=== PATIENT | male | born 1940 | race Caucasian/White ===

== ENCOUNTER 2018-10-28 05:38 | Emergency (ER) | payer MEDICARE, OTHER, SELFPAY ==
[2018-10-28 05:41] VITALS: BP 149/75; PULSE 77; RESP 20; TEMP 36.3; O2SAT 95
[2018-10-28 06:14] LABS: Abs Immature Grans 0.02 k/cumm (0.0-0.09); Absolute Basophil Count 0.01 k/cumm (0.0-0.2); Absolute Eosinophil Count 0.14 k/cumm (0.0-0.7); Absolute Lymphocyte Count 0.95 k/cumm (1.2-3.4); Absolute Monocyte Count 0.62 k/cumm (0.11-0.7); Absolute Neutrophil Count 6.66 k/cumm (1.2-6.7); Basophils % 0.1; Eosinophils % 1.7; HCT 41.2 % (40.0-50.0); HGB 13.9 g/dL (13.5-17.5); Immature Grans % 0.2; Lymphocytes % 11.3; Mean Corp. HGB Concentration 33.7 g/dL (32.0-36.0); Mean Corpuscular Hemoglobin 33.3 pg (27.0-33.0); Mean Corpuscular Volume 98.6 fL (80-95); Mean Platelet Volume 9.2 fL (8.0-11.0); Monocytes % 7.4; Neutrophils % 79.3; Platelet Count 166 x1000/uL (130-400); RBC 4.18 m/cumm (4.50-6.00); RBC Distribution Width 12.9 % (11.8-14.1)
[2018-10-28 06:29] LABS: ALT 24 U/L (12-78); AST 18 U/L (15-37); Albumin 3.7 g/dL (3.4-5.0); Alkaline Phosphatase 63 U/L (46-116); BUN 20 mg/dL (7-18); Bilirubin, Total 0.4 mg/dL (0.2-1.0); CREATININE 1.07 mg/dL (0.70-1.30); Calcium 8.8 mg/dL (8.5-10.1); Chloride 103 mmol/L (98-107); Glucose 123 mg/dL (70-100); Potassium 4.1 mmol/L (3.5-5.1); Sodium 140 mmol/L (136-145); Total Protein 7.6 g/dL (6.4-8.2)
[2018-10-28 06:30] LABS: Troponin I < 0.02 ng/mL (0.00-0.06)
--- NOTE | 2018-10-28 06:35 | DI.RAD_ITS ---
SYMPTOM/DIAGNOSIS: S/P FALL, PAIN, ? FX LEFT RIBS AND PA AND LATERAL CHEST: No priors for comparison. Heart size and pulmonary vasculature are within normal limits. There are sternal wires in place. The lungs show no focal consolidating infiltrates, effusions or pneumothoraces. There is a minimally displaced fracture involving the lateral aspect of the left fifth rib. There is a nondisplaced fracture involving the lateral aspect of the left sixth rib. There is an anterior wedging deformity involving the superior endplate of the T 3 vertebral body. This is age indeterminate. IMPRESSION: 1. No acute pulmonary process. 2. Fractures involving the lateral aspects of the left fifth and sixth ribs. 3. Age indeterminate compression deformity of the superior endplate of T 3. Follow up as clinically appropriate.
--- NOTE | 2018-10-28 07:05 | DI.VRAD_ITS ---
EXAM: XR Left Ribs, 2 Views EXAM DATE/TIME: 10/28/2018 5:59 AM CLINICAL HISTORY: 78 years old, male; Injury or trauma; Fall; Initial encounter; Blunt trauma (contusions or hematomas); Rib area, left side; Injury date: 10/28/18; Injury details: Fall on chest and anterior pain; Prior surgery; Surgery date: 6+ months; Surgery type: Cabg TECHNIQUE: XR Left ribs 2 views. COMPARISON: No relevant prior studies available. FINDINGS: Bones/joints: Anteriorly wedge compression fracture in the upper thoracic spine is age-indeterminate. CT imaging recommended if vertebral body fracture is suspected. Minimally displaced left lateral fifth rib fracture.equivocal sixth nondisplaced left rib fracture. Soft tissues: Normal. IMPRESSION: 1. Anteriorly wedge compression fracture in the upper thoracic spine is age-indeterminate. CT imaging recommended if vertebral body fracture is suspected. 2. Minimally displaced left lateral fifth rib fracture.equivocal sixth nondisplaced left rib fracture. EXAM: XR Chest, 2 Views EXAM DATE/TIME: 10/28/2018 5:59 AM CLINICAL HISTORY: 78 years old, male; Injury or trauma; Fall; Initial encounter; Blunt trauma (contusions or hematomas); Rib area, left side; Injury date: 10/28/18; Injury details: Fall on chest and anterior pain; Prior surgery; Surgery date: 6+ months; Surgery type: Cabg TECHNIQUE: XR of the chest, 2 views. COMPARISON: No relevant prior studies available. FINDINGS: Lungs: Unremarkable. No consolidation. Pleural space: Minimal apical pleural thickening noted on the right Heart/Mediastinum: Unremarkable. No cardiomegaly. Bones/joints: Left-sided rib fractures are not ideally visualized IMPRESSION: No acute findings Dictated and Authenticated by: Huber Singh MD. Ordering:MELISSA Bell MD
--- NOTE | 2018-10-28 07:07 | ED.GENADUL_ITS ---
Discharge Plan Disposition Patient Disposition: HOME Condition: Stable Discharge Details Chief Complaint: Chest/Rib Clinical Impression: Fracture, ribs, Fall Primary Care Provider: Tomy Jasso ED Provider: Arabella Longoria Home Meds and New Rx's Prescriptions: New hydrocodone-acetaminophen 5-325 mg tablet 1 tab PO Q6H PRN (Reason: pain) Qty: 10 RF: 0 Continued multivitamin [Daily Vitamin] 1 EACH tablet 1 ea PO DAILY RF: 0 ascorbic acid (vitamin C) 500 MG tablet 500 mg PO DAILY RF: 0 cholecalciferol (vitamin D3) 1,000 UNIT tablet 1,000 unit PO DAILY Qty: 100 RF: 6 glucosam-chond sm-cedvpq-[id number] ac 1 EACH capsule 1 ea PO DAILY RF: 0 acetaminophen [Tylenol Extra Strength] 500 MG tablet 500 mg PO BID RF: 0 aspirin [Aspir-81] 81 MG tablet,delayed release (DR/EC) 81 mg PO -- Qty: 100 RF: 0 pravastatin 40 MG tablet 40 mg PO DAILY Qty: 90 RF: 3 gabapentin 300 MG capsule 300 mg PO as directed Qty: 90 RF: 5 clonazepam 1 MG tablet 1 mg PO HS Qty: 90 RF: 1 Discharge Instructions Instructions: Rib Fracture (ED) Additional Instructions: Take the hydrocodone as needed and directed for pain. Follow-up with the primary care doctor in 1 week for reevaluation. Return immediately to the emergency department any worsening or new concerning symptoms. Discharge Data Discharge Date/Time-TO BE ENTERED AT DEPARTURE: 10/28/18 08:30 Discharge Physician: Arabella Longoria Medical Decision Making 78yo M w/ a h/o HLD, CAD, CABG who presents with left anterior and lateral rib pain after slip and fall on ice 4 days ago. Pt had c/o L chest heaviness to nurse so an EKG and labs done on arrival due to pt's age and h/o CABG but pt states his main complaint is a dull constant ache in his ribs, that is worse with any movement or cough. Vitals within normal limits. Afebrile. Patient has a history of chronic tobacco smoking and had wheezing so a neb treatment was given. He has normal respiratory rate, oxygen saturation and no fever. He appears nontoxic and in no acute distress. Patient was offered pain medication, but he drove himself here and declines at this time. EKG notes a rate of 78, sinus, occasional PVCs, no acute ST elevation or depression. Labs reviewed and unremarkable. Troponin negative. X-rays reviewed and note left displaced fifth and nondisplaced sixth rib fractures as well as age- indeterminate wedge compression fracture of upper T-spine. Patient has no midline T-spine tenderness and do not suspect acute fracture. He has no focal deficits. Medical Records Medical records reviewed: Yes I reviewed the patient's medical records. Imaging Data Radiologic Study: Radiologist's impression: XR Left Ribs, 2 Views EXAM DATE/TIME: 10/28/2018 5:59 AM FINDINGS: Bones/joints: Anteriorly wedge compression fracture in the upper thoracic spine is age-indeterminate. CT imaging recommended if vertebral body fracture is suspected. Minimally displaced left lateral fifth rib fracture.equivocal sixth nondisplaced left rib fracture. Soft tissues: Normal. IMPRESSION: 1. Anteriorly wedge compression fracture in the upper thoracic spine is age-indeterminate. CT imaging recommended if vertebral body fracture is suspected. 2. Minimally displaced left lateral fifth rib fracture.equivocal sixth nondisplaced left rib fracture. XR Chest, 2 Views FINDINGS: Lungs: Unremarkable. No consolidation. Pleural space: Minimal apical pleural thickening noted on the right Heart/Mediastinum: Unremarkable. No cardiomegaly. Bones/joints: Left-sided rib fractures are not ideally visualized IMPRESSION: No acute findings Lab Data Lab results reviewed: Yes I reviewed the patient's lab results. HPI General Mode of arrival: ambulatory . Date/Time Provider Initiated Documentation: 10/28/18 05:57 . Limitations to Documentation: no limitations . Information obtained by: patient . HPI Narrative: Patient is a 78-year-old male with a history of coronary artery disease, hyperlipidemia, CABG who presents with left anterior chest and rib pain after fall and slip on ice 4 days ago. Patient states his arm was tucked into his chest and he fell directly onto the hard ground. Patient states he has had pain with deep breath and movement and coughing since then. Patient is a chronic smoker so states he freely has a smoker's cough but states this is no worse than usual. He denies any fever. Patient describes the pain as a dull ache and does not endorse any tearing or ripping pain. Patient took 2 Tylenol this morning for pain relief. Patient states he drove himself to the ED per Related Data Home Medications Medication Instructions Recorded Confirmed ascorbic acid (vitamin C) 500 mg PO DAILY 12/09/12 10/28/18 multivitamin [Daily Vitamin] 1 ea PO DAILY 12/09/12 10/28/18 cholecalciferol (vitamin D3) 1,000 unit PO DAILY #100 tab-cap 07/13/14 10/28/18 glucosam-chond ip-ztjsef-ei ac 1 ea PO DAILY 08/05/14 10/28/18 acetaminophen [Tylenol Extra 500 mg PO BID tab 02/04/17 10/28/18 Strength] aspirin [Aspir-81] 81 mg PO M-W-F #100 tab-cap 06/24/17 10/28/18 pravastatin 40 mg PO DAILY #90 tab-cap 12/16/17 10/28/18 gabapentin 300 mg PO as directed #90 tab-cap 05/06/18 10/28/18 clonazepam 1 mg PO HS #90 tab 05/27/18 10/28/18 hydrocodone-acetaminophen 1 tab PO Q6H PRN #10 tab 10/28/18 Previous Rx's Medication Instructions Recorded aspirin [Aspir-81] 81 mg PO M-W-F #100 tab-cap 06/24/17 pravastatin 40 mg PO DAILY #90 tab-cap 12/16/17 gabapentin 300 mg PO as directed #90 tab-cap 05/06/18 clonazepam 1 mg PO HS #90 tab 05/27/18 hydrocodone-acetaminophen 1 tab PO Q6H PRN #10 tab 10/28/18 Allergies Allergy/AdvReac Type Severity Reaction Status Date / Time shellfish derived Allergy Intermediate severe Unverified 10/28/18 05:49 vomiting oxycodone HCl [From Percocet] AdvReac wild Unverified 10/28/18 05:49 dreams trazodone AdvReac unknown Unverified 10/28/18 05:49 General Stated Complaint: Chest/Rib JACKELINE: 4 Review of Systems Review of Systems All systems reviewed & are unremarkable except as noted in HPI and below Constitutional Reports as per HPI, Denies chills and Denies fever(s) Eyes Denies blurry vision ENT Denies dizziness, Denies sore throat and Denies throat swelling Cardiovascular Reports chest pain and Denies dyspnea Respiratory Denies dyspnea Gastrointestinal Denies abdominal pain, Denies diarrhea and Denies vomiting Genitourinary Denies hematuria and Denies dysuria Musculoskeletal Denies back pain and Denies numbness Integumentary/Breasts Denies lesions and Denies rash Neurologic Denies dizziness and Denies numbness Allergic/Immunologic Denies throat swelling [facility] Medical History Hyperlipemia (Acute) Alcohol abuse (Chronic) Coronary artery disease (Chronic) Surgical History S/P rotator cuff repair (Acute) History of appendectomy (Chronic) History of tonsillectomy (Chronic) Hx of CABG (Chronic) Hx of cholecystectomy (Chronic) Colonoscopy - IV Sedation (10/30/16) SKIN BIOPSY (08/07/15) Family History Mother Diabetes Father No problems noted. Sister No problems noted. Sister No problems noted. Brother No problems noted. Social History Smoking/Tobacco Use Status: Current every day alcohol intake: former substance use type: does not use Exam Const General: cooperative, healthy appearing and no acute distress HENMT Head: normal to inspection Face and sinus: normal facial exam Eyes General: appearance normal, both eyes and all related structures EOM: EOM intact bilaterally Neck Neck: normal visual inspection and No submandibular swelling Lymphatic: no lymphadenopathy noted Chest Chest: normal inspection of the chest and tenderness rib left mid-clavicular line Chest/axillae images: 1. L rib tenderness 2. L rib tenderness Resp Effort & Inspection: normal respiratory effort and able to speak in complete sentences Auscultation: clear to auscultation bilaterally Cardio Rate: regular rate Rhythm: regular rhythm GI Inspection: normal to inspection and other (no evidence of trauma) Palpation: soft, not firm, not rigid and nontender Auscultation: normal bowel sounds Skin General skin exam: no rashes or lesions noted Neuro General: alert, awake and oriented x3 Cognition: normal cognition Speech: speech normal Motor: muscle tone normal throughout Sensory Exam: no sensory deficits noted Extrem General: normal to inspection, full ROM and no edema Psych Appearance: grossly normal Mental Status: mental status grossly normal Speech and Movement: speech and movement normal Affect: normal affect Course Vital Signs Temperature 97.3 F L 10/28/18 05:41 Pulse 77 10/28/18 05:41 Respiratory Rate 20 10/28/18 05:41 Blood Pressure 149/75 H 10/28/18 05:41 Pulse Oximetry 95 10/28/18 05:41 Temperature 97.3 F L 10/28/18 05:41 Temperature Source Skin 10/28/18 05:41 Pulse 77 10/28/18 05:41 Respiratory Rate 20 10/28/18 05:41 Respiratory Effort 10/28/18 05:51 Respiratory Depth Shallow 10/28/18 05:51 Respiratory Pattern Normal 10/28/18 05:51 Blood Pressure 149/75 H 10/28/18 05:41 Blood Pressure Position Sitting 10/28/18 05:41 Pulse Oximetry 95 10/28/18 05:41 Oxygen Delivery Method Room Air 10/28/18 05:41 Oxygen Flow Rate 0 10/28/18 05:41 Pain Level 8 10/28/18 05:51 Lab/Test Results Lab/Test Results: Laboratory Tests Range/Units 10/28/18 10/28/18 06:08 06:08 WBC (4.4-10.8) k/cumm 8.40 RBC (4.50-6.00) m/cumm 4.18 L Hgb (13.5-17.5) g/dL 13.9 Hct (40.0-50.0) % 41.2 MCV (80-95) fL 98.6 H MCH (27.0-33.0) pg 33.3 H MCHC (32.0-36.0) g/dL 33.7 RDW (11.8-14.1) % 12.9 Plt Count (130-400) x1000/uL 166 MPV (8.0-11.0) fL 9.2 Immature Gran % 0.2 Neutrophils % 79.3 Lymphocytes % 11.3 Monocytes % 7.4 Eosinophils % 1.7 Basophils % 0.1 Absolute Neutrophils (1.2-6.7) k/cumm 6.66 Absolute Lymphocytes (1.2-3.4) k/cumm 0.95 L Absolute Monocytes (0.11-0.7) k/cumm 0.62 Absolute Eosinophils (0.0-0.7) k/cumm 0.14 Absolute Basophils (0.0-0.2) k/cumm 0.01 Sodium (136-145) mmol/L 140 Potassium (3.5-5.1) mmol/L 4.1 Chloride (98-107) mmol/L 103 Carbon Dioxide (21.0-32.0) mmol/L 28.0 Anion Gap (3-11) mmol/L 9.0 BUN (7-18) mg/dL 20 H Creatinine (0.70-1.30) mg/dL 1.07 Estimated GFR/1.73 m2 (mL/min/1.73m2) >= 60.00 Glucose (70-100) mg/dL 123 H Calcium (8.5-10.1) mg/dL 8.8 Magnesium (1.8-2.4) mg/dL 2.0 Total Bilirubin (0.2-1.0) mg/dL 0.4 AST (15-37) U/L 18 ALT (12-78) U/L 24 Alkaline Phosphatase (46-116) U/L 63 Troponin I (0.00-0.06) ng/mL < 0.02 Total Protein (6.4-8.2) g/dL 7.6 Albumin (3.4-5.0) g/dL 3.7
[2018-10-28] MEDS: HYDROcodone 5/Acetaminophen 325 TAB PO (08:30)
--- NOTE | 2018-10-28 13:25 | NUR.NOTE ---
incentive spirometer given and reviewed.Nursing Note:
[2018-10-28 13:26] VITALS: BP 106/75; PULSE 65; RESP 16; TEMP 36.3; O2SAT 98
== END 2018-10-28 08:30 | disposition home or self-care (01) ==
PROVIDERS: Emergency Provider Physician Assistant; PCP Family Medicine
DX: S22.42XA Multiple fractures of ribs, left side, initial encounter for closed fracture (principal); R06.2 Wheezing; I25.10 Atherosclerotic heart disease of native coronary artery without angina pectoris; W00.0XXA Fall on same level due to ice and snow, initial encounter; Z95.1 Presence of aortocoronary bypass graft; F17.210 Nicotine dependence, cigarettes, uncomplicated
CPT/HCPCS: 36415; 80053; 93005; 94640; 99285; 71046; 71100; 83735; 84484; 85025; 93010

== ENCOUNTER 2020-02-02 14:10 | Outpatient (REF) | payer MEDICARE, OTHER, SELFPAY ==
[2020-02-02 16:04] LABS: Bilirubin Moderate (Negative); Blood Large (Negative); Clarity Cloudy (Clear); Glucose Negative (Negative); Ketones Trace mg/dL (Negative); Leukocyte Esterase Negative (Negative); Nitrite Negative (Negative); Specific Gravity 1.025 (1.005-1.025)
[2020-02-02 17:14] LABS: C & S Indicated? Yes; RBC >50 HPF (0-2)
== END 2020-02-02 14:30 ==
LOC: LBN 14:10
PROVIDERS: PCP Family Medicine; Visit Provider Family Medicine
DX: R31.9 Hematuria, unspecified (principal)
CPT/HCPCS: 81003; 81015; 87086

== ENCOUNTER → 2020-03-10 10:31 | Outpatient (BNVA) | payer MEDICARE, OTHER, SELFPAY | PROVIDERS: PCP Family Medicine; Referring Provider Family Medicine; Visit Provider Nurse Practitioner Gerontology | DX: N40.2 Nodular prostate without lower urinary tract symptoms (principal); R31.9 Hematuria, unspecified; I10 Essential (primary) hypertension | CPT/HCPCS: 81003; 99204; 99215 ==

== ENCOUNTER 2020-03-10 12:34 | Outpatient (REF) | payer MEDICARE, OTHER, SELFPAY ==
[2020-03-11 09:33] LABS: PSA, Screening 15.5 ng/mL (0.0-6.5)
== END 2020-03-10 12:54 ==
LOC: LBN 12:34
PROVIDERS: PCP Family Medicine; Visit Provider Nurse Practitioner Gerontology
DX: N40.2 Nodular prostate without lower urinary tract symptoms (principal); R31.9 Hematuria, unspecified; Z12.5 Encounter for screening for malignant neoplasm of prostate
CPT/HCPCS: 84153

== ENCOUNTER 2020-04-26 01:15 | Outpatient (CLI) | payer MEDICARE, OTHER, SELFPAY ==
--- NOTE | 2020-04-26 07:15 | DI.US_ITS ---
EXAM: elevated psa 15.5ng/ml; prostate nodule,n40.2 COMPARISON: No exams were available for comparison TECHNIQUE: Ultrasound performed using standard protocol. FINDINGS: Sonography was provided for Dr. Jean Baptiste during the performance of a transrectal ultrasound-guided pros adams biopsy. Please refer to the procedure report for complete details. DATA REPOSITORY:
--- NOTE | 2020-04-26 10:16 | PROST_PTH ---
PATIENT: Salas Cornell LOC: [facility] U#:[id number] AGE/SX: 79/M ROOM: RE04/26/[address]: Louis Jean Baptiste MD : 1940 BED: DIS: 04/26/2020 SPEC #: [id number] RECD: 04/26/20 12:26 STATUS: TORSTEN RE #: [id number] LAZ: 04/26/20 10:[address]: Louis Jean Baptiste DEPT: Surgical Specimen RECD BY: Chong Brown ENTERED: 04/26/20 12:35 SP TYPE: PROST OTHR DR: Tomy Jasso DO Tissues: 1 - PROSTATE NEEDLE BIOPSY 2 - PROSTATE NEEDLE BIOPSY 3 - PROSTATE NEEDLE BIOPSY 4 - PROSTATE NEEDLE BIOPSY 5 - PROSTATE NEEDLE BIOPSY 6 - PROSTATE NEEDLE BIOPSY 7 - PROSTATE NEEDLE BIOPSY 8 - PROSTATE NEEDLE BIOPSY 9 - PROSTATE NEEDLE BIOPSY 10 - PROSTATE NEEDLE BIOPSY 11 - PROSTATE NEEDLE BIOPSY 12 - PROSTATE NEEDLE BIOPSY Procedures: GROSS AND MICRO LEVEL 4 Comments: [id number]
--- NOTE | 2020-04-26 10:29 | W.PM.OP ---
Date of service: 04/26/20 Time of Service: 10:29 Operative Note Operative Note DATE OF PROCEDURE: 04/26/20 PRE-OP DIAGNOSIS: 1. Elevated PSA 2. Abnormal digital rectal exam POST-OP DIAGNOSIS: same PROCEDURE: Transrectal ultrasound-guided needle biopsy of the prostate SURGEON: Louis Jean Baptiste ANESTHESIA: local ESTIMATED BLOOD LOSS: 5 PATHOLOGY: other (12 laterally directed biopsies of the prostate sent for permanent section) COMPLICATIONS: None Patient was transported to: no change Patient's condition: stable Indications: This is a 79-year-old gentleman who was identified as having a palpable nodule on the left side of the prostate. He also has a PSA level of 15.5 ng/mL. He presents now for ultrasound-guided biopsy of the prostate Findings: Prostate volume between 18 and 19 cc Procedure Description: The patient was brought to the radiology suite on 04/26/2020. He had been given a preprocedural oral antibiotic. He was placed in the left lateral position. Transrectal imaging of the prostate was then performed using a variable hertz transducer. The prostate was imaged in transverse and longitudinal planes. The prostatic volume was measured at 18.9 cc. The transition zone was only slightly enlarged. There was a hypoechoic area on the left peripheral zone. The architecture between the peripheral and transition zones was well preserved. We then did a periprosthetic nerve block using 1% lidocaine. A total of 12 laterally directed biopsies were taken. At least 2 of the biopsies were taken through the hypoechoic area. Each biopsy was labeled and sent to pathology for permanent section. The patient tolerated this procedure with no complications
== END 2020-04-26 01:35 ==
PROVIDERS: PCP Family Medicine; Visit Provider Urology
DX: N40.2 Nodular prostate without lower urinary tract symptoms (principal); C61 Malignant neoplasm of prostate; R97.20 Elevated prostate specific antigen [PSA]
CPT/HCPCS: 55700; 76942; 76872; 88305

== ENCOUNTER → 2020-05-10 14:27 | Outpatient (BNVA) | payer MEDICARE, SELFPAY | PROVIDERS: PCP Family Medicine; Referring Provider Family Medicine; Visit Provider Urology | DX: C61 Malignant neoplasm of prostate (principal) | CPT/HCPCS: 99214 ==

== ENCOUNTER → 2020-05-13 10:32 | Outpatient (BNVA) | payer MEDICARE, SELFPAY | PROVIDERS: PCP Family Medicine; Referring Provider Family Medicine; Visit Provider Urology | DX: C61 Malignant neoplasm of prostate (principal); I10 Essential (primary) hypertension | CPT/HCPCS: 99212; 99213 ==

== ENCOUNTER 2020-05-20 01:45 | Outpatient (CLI) | payer MEDICARE, SELFPAY ==
--- NOTE | 2020-05-20 06:15 | DI.NM_ITS ---
EXAM: NM BONE SCAN WHOLE BODY GRP CLINICAL HISTORY: r/o mets,PROSTATE CA. TECHNIQUE: Injected Dose: 25 mCi Tc-99m MDP Delayed Images: 2-3 hours. COMPARISON: No exams were available for comparison FINDINGS: Symmetric axial uptake. Bilateral renal excretion is identified. 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 Focus of increased radiotracer upt pop at the right aspect of the mid cervical spine. This is likely degenerative. X-rays of the cervi naveed spine may be obtained for further evaluation. No other suspicious uptake is seen in the axial or appendicular skeleton to suggest osseous metastatic disease. IMPRESSION: 1. No definite evidence of metastatic disease. Please see the above discussion for complete details. DATA REPOSITORY:
[2020-05-20] MEDS: Breeza Beverage 473 ML BTL PO ×2 (09:26→09:27)
[2020-05-20] MEDS: Omnipaque 350 MG/ML 50 ML BTL PO (09:27)
--- NOTE | 2020-05-20 10:47 | DI.CT_ITS ---
EXAM: CT ABDOMEN PELVIS W CLINICAL HISTORY: r/o mets,prostate ca,c61 TECHNIQUE: Imaging Protocol: Axial computed tomography images with coronal and sagittal reformatted images were created and reviewed CONTRAST MATERIAL: Intravenous: Omnipaque 350 Contrast volume:100 mL Oral: Yes COMPARISON: CT RENAL COLIC WO CONTRAST from 12/17/2017 FINDINGS: ABDOMEN: Lung Bases: Emphysematous changes and pulmonary fibrosis. Liver: Normal density. No measurable mass. There are areas of decreased attenuation along the gallbla dder fossa which may represent focal fatty infiltration. Portal, Superior Mesenteric, and Splenic Veins: Unremarkable. Gallbladder and Biliary Tract: Status post cholecystectomy. No biliary ductal dilatation. Pancreas: Normal density, no abnormal calcifications or inflammatory process. Spleen: Normal. Small accessory spleen. Adrenals: Stable left adrenal nodule. Kidneys: Normal size, contour and axis. Nonobstructing 2 mm right renal calculus. There is a heterog eneously enhancing 3 x 3.4 x 2.7 cm mass in the inferior pole of the left kidney. Abdominal Aorta: Abdominal portion non-dilated. Atherosclerosis. Bowel: No obstruction or bowel wall thickening. No evidence of acute appendicitis. Colonic diverticu losis but no evidence of acute diverticulitis. Peritoneal Cavity: No ascites, collection or mesenteric inflammatory response. Lymph Nodes: Within normal limits. Bones: No acute abnormality degenerative changes are seen in the spine. Stable sclerotic foci seen i n the lower thoracic spine. These may reflect bone islands. Bone scan correlation is recommended. Soft Tissues: Bilateral inguinal hernia are noted each containing small portions of the urinary bladd er. PELVIS: Bladder: Large left urinary bladder diverticulum. A portion of which extends into the left inguinal hernia. Small bladder stones. 1.4 x 1.1 cm soft tissue lesion along the posterior right aspect of t he urinary bladder. Neoplasm cannot be excluded. Reproductive Organs: Unremarkable as visualized. Lymph Nodes: Within normal limits. Bones: Please see above. IMPRESSION: 1. Areas of decreased attenuation in the liver adjacent to the gallbladder fossa which may represent focal fatty infiltration. Masses cannot be excluded. Sonography or MRI may be considered for furthe r evaluation. 2. 3.4 cm heterogeneous mass in the inferior pole of the left kidney. There renal neoplasm such as R CC is suspected. 3. 1.4 x 1.1 cm soft tissue lesion along the posterior and right aspect of the urinary bladder. Mass cannot be excluded. 4. Please see the above discussion for complete details. RADIATION DOSE DELIVERED: 771.68mGy.cm Total DLP DATA REPOSITORY: All CT scans at this facility are submitted to the National Radiology Data Registry (NRDR) Dose Index Registry (DIR) with the [employer] ([employer]). RADIATION OPTIMIZATION: All CT scans at this facility use at least one of these dose optimization te chniques: automated exposure control; mA and/or kV adjustment per patient size (includes targeted exa ms where dose is matched to clinical indication); or iterative reconstruction.
[2020-05-20] MEDS: Omnipaque 350 MG/ML 100 ML BTL IJ (10:53)
[2020-05-20] MEDS: Normal Saline - Diluent 50 ML VIAL IV (10:54)
== END 2020-05-20 02:05 ==
PROVIDERS: PCP Family Medicine; Visit Provider Urology
DX: C61 Malignant neoplasm of prostate (principal); N28.89 Other specified disorders of kidney and ureter; N32.89 Other specified disorders of bladder; R31.9 Hematuria, unspecified; I10 Essential (primary) hypertension
CPT/HCPCS: 78306; 99214; 74177; J3490; Q9967

== ENCOUNTER 2020-05-20 02:30 | Outpatient (CLI) | payer MEDICARE, OTHER, SELFPAY ==
[2020-05-20 09:31] LABS: CREATININE 1.13 mg/dL (0.70-1.30)
--- NOTE | 2020-05-20 10:43 | DI.CTLCSR_ITS ---
EXAM: CT CHEST LUNG CANCER SCREEN CLINICAL HISTORY: Screening for lung cancer,current smoker,f17.210 TECHNIQUE: Imaging Protocol: Axial computed tomography images with coronal and sagittal reformatted images were created and reviewed COMPARISON: No exams were available for comparison FINDINGS: Tracheobronchial tree: Patent where visualized. Mediastinum and Diana: No dominant adenopathy or fluid collection. Pulmonary parenchyma: No consolidation or dominant measurable mass. Centrilobular emphysema. Lung Nodules: None. Pleura: No effusion or pneumothorax. Heart: The heart is not dilated. Coronary artery calcification and/or vascular stents are present. N o pericardial effusion. Aorta: Thoracic aorta non-dilated.Atherosclerosis. Upper abdomen: Status post cholecystectomy. Bones: Sternotomy. Degenerative changes. Old T3 compression fracture deformity. Soft Tissues: Unremarkable. IMPRESSION: No pulmonary nodule. Lung RADS Cat 1 - Negative: No nodules and definitely benign nodules Lung-RADS 1.0 CATEGORIES: Category 0 - Prior chest CT exam(s) being located for comparison. Category 1 - Annual screening in 12 months. No nodules or definitely benign nodules. Category 2 - Annual screening in 12 months. Benign appearance. Nodules with low likelihood of becomin g active cancer. Category 3 - 6-month follow-up. Probably benign. Short-term follow-up suggested. Nodules with low lik elihood of becoming active cancer. Category 4A - 3-month follow-up and CT/PET if >8 mm in size. Suspicious finding. Findings which requi re additional testing. Category 4B - Findings which require additional testing and tissue sampling. Suspicious finding. C Added to Any of the Above - History of prior lung cancer screening. S Added to Any of the Above - Significant unexpected other finding. RADIATION DOSE DELIVERED: 74.64mGy.cm Total DLP DATA REPOSITORY: All CT scans at this facility are submitted to the National Radiology Data Registry (NRDR) Dose Index Registry (DIR) with the [employer] ([employer]). RADIATION OPTIMIZATION: All CT scans at this facility use at least one of these dose optimization te chniques: automated exposure control; mA and/or kV adjustment per patient size (includes targeted exa ms where dose is matched to clinical indication); or iterative reconstruction.
== END 2020-05-20 02:50 ==
PROVIDERS: Urology; PCP Family Medicine; Visit Provider Family Medicine
DX: Z12.2 Encounter for screening for malignant neoplasm of respiratory organs (principal); F17.210 Nicotine dependence, cigarettes, uncomplicated; C61 Malignant neoplasm of prostate; N28.89 Other specified disorders of kidney and ureter; N32.89 Other specified disorders of bladder; R31.9 Hematuria, unspecified; I10 Essential (primary) hypertension
CPT/HCPCS: 78306; 99214; G0297; 74177; 82565; J3490; Q9967

== ENCOUNTER → 2020-07-05 15:24 | Outpatient (BNVA) | payer MEDICARE, SELFPAY | PROVIDERS: PCP Family Medicine; Referring Provider Family Medicine; Visit Provider Urology | DX: C67.9 Malignant neoplasm of bladder, unspecified (principal); C64.9 Malignant neoplasm of unspecified kidney, except renal pelvis; C61 Malignant neoplasm of prostate | CPT/HCPCS: 99213; 99443 ==

== ENCOUNTER 2020-08-18 12:46 | Outpatient (CLI) | payer MEDICARE, SELFPAY ==
[2020-08-20 10:55] LABS: PSA, Ultrasensitive 4.8 ng/mL (<= 6.5)
[2020-08-23 10:59] LABS: Testosterone, Total 11 ng/dL (240-950)
== END 2020-08-18 13:06 ==
PROVIDERS: PCP Family Medicine; Visit Provider Radiology Radiation Oncology
DX: C61 Malignant neoplasm of prostate (principal); C67.9 Malignant neoplasm of bladder, unspecified
CPT/HCPCS: 36415; 84153; 84403

== ENCOUNTER 2020-08-30 03:42 | Outpatient (CLI) | payer MEDICARE, OTHER, SELFPAY ==
[2020-08-30 11:43] LABS: ALT 23 U/L (16-63); AST 22 U/L (15-37); Albumin 3.9 g/dL (3.4-5.0); Alkaline Phosphatase 73 U/L (46-116); Bilirubin, Total 0.3 mg/dL (0.2-1.0); Total Protein 7.9 g/dL (6.4-8.2)
[2020-09-02 14:12] LABS: PSA, Ultrasensitive 2.2 ng/mL (<= 6.5)
[2020-09-04 16:08] LABS: Testosterone, Total 34 ng/dL (240-950)
== END 2020-08-30 04:02 ==
PROVIDERS: PCP Family Medicine; Visit Provider Radiology Radiation Oncology
DX: C61 Malignant neoplasm of prostate (principal); C67.9 Malignant neoplasm of bladder, unspecified
CPT/HCPCS: 36415; 80076; 84153; 84403

== ENCOUNTER → 2020-08-31 12:11 | Outpatient (BNVA) | payer MEDICARE, SELFPAY | PROVIDERS: PCP Family Medicine; Referring Provider Family Medicine; Visit Provider Nurse Practitioner Gerontology | DX: C67.9 Malignant neoplasm of bladder, unspecified (principal); C64.9 Malignant neoplasm of unspecified kidney, except renal pelvis; N32.89 Other specified disorders of bladder; Z46.6 Encounter for fitting and adjustment of urinary device ==

== ENCOUNTER 2020-10-13 02:44 | Outpatient (CLI) | payer MEDICARE, OTHER, SELFPAY ==
[2020-10-13 09:53] LABS: ALT 21 U/L (16-63); AST 20 U/L (15-37); Albumin 3.9 g/dL (3.4-5.0); Alkaline Phosphatase 74 U/L (46-116); Bilirubin, Direct 0.09 mg/dL (0.00-0.20); Bilirubin, Total 0.4 mg/dL (0.2-1.0); Total Protein 7.2 g/dL (6.4-8.2)
[2020-10-14 11:43] LABS: PSA, Ultrasensitive 0.38 ng/mL (<= 6.5)
[2020-10-17 00:19] LABS: Testosterone, Total <7.0 ng/dL (240-950)
== END 2020-10-13 03:04 ==
PROVIDERS: PCP Family Medicine; Visit Provider Radiology Radiation Oncology
DX: C61 Malignant neoplasm of prostate (principal); C67.9 Malignant neoplasm of bladder, unspecified
CPT/HCPCS: 36415; 80076; 84153; 84403

== ENCOUNTER 2020-11-03 03:02 | Outpatient (CLI) | payer MEDICARE, OTHER, SELFPAY ==
[2020-11-03 11:03] LABS: ALT 20 U/L (16-63); AST 15 U/L (15-37); Albumin 4.1 g/dL (3.4-5.0); Alkaline Phosphatase 73 U/L (46-116); Bilirubin, Direct 0.07 mg/dL (0.00-0.20); Bilirubin, Total 0.3 mg/dL (0.2-1.0)
[2020-11-04 11:56] LABS: PSA, Ultrasensitive 0.25 ng/mL (<= 6.5)
[2020-11-06 16:21] LABS: Testosterone, Total <7.0 ng/dL (240-950)
== END 2020-11-03 03:22 ==
PROVIDERS: PCP Family Medicine; Visit Provider Radiology Radiation Oncology
DX: C61 Malignant neoplasm of prostate (principal); C67.9 Malignant neoplasm of bladder, unspecified
CPT/HCPCS: 36415; 80076; 84153; 84403

== ENCOUNTER 2020-12-02 01:42 | Outpatient (CLI) | payer MEDICARE, OTHER, SELFPAY ==
[2020-12-02 07:37] LABS: ALT 18 U/L (16-63); AST 18 U/L (15-37); Albumin 3.9 g/dL (3.4-5.0); Alkaline Phosphatase 80 U/L (46-116); Bilirubin, Direct 0.06 mg/dL (0.00-0.20); Bilirubin, Total 0.4 mg/dL (0.2-1.0)
[2020-12-05 10:33] LABS: PSA, Ultrasensitive 0.19 ng/mL (<= 6.5)
[2020-12-07 07:28] LABS: Testosterone, Total <7.0 ng/dL (240-950)
== END 2020-12-02 01:43 | disposition home or self-care (01) ==
LOC: LBO 01:42
PROVIDERS: PCP Family Medicine; Visit Provider Radiology Radiation Oncology
DX: C61 Malignant neoplasm of prostate (principal); C67.9 Malignant neoplasm of bladder, unspecified
CPT/HCPCS: 36415; 80076; 84153; 84403

== ENCOUNTER 2021-02-07 02:16 | Outpatient (CLI) | payer MEDICARE, SELFPAY ==
[2021-02-07 10:08] LABS: ALT 19 U/L (16-63); AST 19 U/L (15-37); Albumin 3.9 g/dL (3.4-5.0); Alkaline Phosphatase 97 U/L (46-116); Bilirubin, Direct 0.1 mg/dL (0.0-0.2); Bilirubin, Total 0.3 mg/dL (0.2-1.0); Total Protein 7.4 g/dL (6.4-8.2)
[2021-02-09 14:33] LABS: PSA, Ultrasensitive 0.12 ng/mL (<= 6.5)
[2021-02-13 16:28] LABS: Testosterone, Total <7.0 ng/dL (240-950)
== END 2021-02-07 02:17 | disposition home or self-care (01) ==
LOC: LBO 02:16
PROVIDERS: PCP Family Medicine; Visit Provider Radiology Radiation Oncology
DX: C61 Malignant neoplasm of prostate (principal); C67.9 Malignant neoplasm of bladder, unspecified
CPT/HCPCS: 36415; 80076; 84153; 84403

== ENCOUNTER 2021-04-17 03:14 | Outpatient (CLI) | payer MEDICARE, SELFPAY ==
[2021-04-17 12:19] LABS: Calculated LDL 78 mg/dL (<100); Cholesterol 130 mg/dL (<200); HDL Cholesterol 44 mg/dL (40-60); Triglyceride 44 mg/dL (<150)
[2021-04-20 15:02] LABS: ALT 19 U/L (16-63); AST 16 U/L (15-37); Albumin 3.8 g/dL (3.4-5.0); Alkaline Phosphatase 77 U/L (46-116); Bilirubin, Direct 0.1 mg/dL (0.0-0.2); Bilirubin, Total 0.2 mg/dL (0.2-1.0); Total Protein 7.1 g/dL (6.4-8.2)
[2021-04-21 16:46] LABS: PSA, Ultrasensitive 0.08 ng/mL (<= 6.5)
== END 2021-04-17 03:15 | disposition home or self-care (01) ==
LOC: LBO 03:14
PROVIDERS: PCP Family Medicine; Visit Provider Nurse Practitioner
DX: I10 Essential (primary) hypertension (principal); E88.81 Metabolic syndrome and other insulin resistance
CPT/HCPCS: 36415; 80061; 80076; 84153

== ENCOUNTER 2021-07-31 10:43 | Outpatient (CLI) | payer MEDICARE, OTHER, SELFPAY ==
[2021-08-01 17:30] LABS: PSA, Ultrasensitive 0.07 ng/mL (<= 6.5)
[2021-08-03 01:50] LABS: Testosterone, Total 23 ng/dL (240-950)
== END 2021-07-31 10:44 | disposition home or self-care (01) ==
LOC: LBO 10:49
PROVIDERS: PCP Family Medicine; Visit Provider Radiology Radiation Oncology
DX: C61 Malignant neoplasm of prostate (principal); C67.9 Malignant neoplasm of bladder, unspecified
CPT/HCPCS: 36415; 84153; 84403

== ENCOUNTER 2022-05-01 09:06 | Outpatient (REF) | payer MEDICARE, OTHER, SELFPAY | END 2022-05-01 09:07 | disposition home or self-care (01) | LOC: LBN 09:06 | PROVIDERS: PCP Family Medicine; Visit Provider Family Medicine | DX: R31.9 Hematuria, unspecified (principal) | CPT/HCPCS: 87077; 87086; 87186 ==

== ENCOUNTER → 2022-06-14 02:16 | Outpatient (CLI) | payer MEDICARE, OTHER, SELFPAY ==
[2022-06-14 09:47] LABS: CREATININE 1.4 mg/dL (0.70-1.30); Estimated GFR 51.13 (mL/min/1.73m2)
--- NOTE | 2022-06-14 10:25 | DI.CT_ITS ---
Exam(s) CT HEAD WO/W EXAM: CT HEAD WO/W CLINICAL HISTORY: Acute memory decompensation, h/o cancers,? mets,r41.3,c67.9. TECHNIQUE: Imaging Protocol: Axial computed tomography images with coronal and sagittal reformatted images were created and reviewed. CONTRAST MATERIAL: Intravenous: Omnipaque 350 contrast volume:100 mL COMPARISON: No exams were available for comparison FINDINGS: Ventricles and Extra axial spaces: Normal in size and morphology for the patient's age. Hemorrhage: None. Cerebral parenchyma: There is no evidence of an acute territorial infarct. There are areas of decrea sed attenuation in the white matter most consistent with small vessel ischemic disease. Enhancement: No suspicious enhancement. [place]: Unremarkable. Midline shift: None. Brainstem/Cerebellum: Normal. Calvarium: Normal. Visualized Paranasal sinuses/Mastoids: There is mucosal thickening in the right maxillary sinus and r ight ethmoid air cell and frontal sinus. IMPRESSION: 1. No acute intracranial process. No intracranial mass or enhancing lesions. 2. Chronic sinusitis. RADIATION DOSE DELIVERED: 1,394mGy.cm Total DLP 1,394mGy.cm Total DLP DATA REPOSITORY: All CT scans at this facility are submitted to the National Radiology Data Registry (NRDR) Dose Index Registry (DIR) with the [employer] (ACR). RADIATION OPTIMIZATION: All CT scans at this facility use at least one of these dose optimization te chniques: automated exposure control; mA and/or kV adjustment per patient size (includes targeted exa ms where dose is matched to clinical indication); or iterative reconstruction.
[2022-06-14] MEDS: Omnipaque 350 MG/ML 100 ML BTL IJ (10:36)
[2022-06-14] MEDS: Normal Saline Flush 10 ML SYR IVP (10:36)
== END ==
PROVIDERS: PCP Family Medicine; Visit Provider Family Medicine
DX: R41.3 Other amnesia (principal); C67.9 Malignant neoplasm of bladder, unspecified; J32.9 Chronic sinusitis, unspecified
CPT/HCPCS: 70470; 82565; J3490

== ENCOUNTER 2023-03-25 11:33 | Outpatient (CLI) | payer MEDICARE, OTHER, SELFPAY ==
--- NOTE | 2023-03-25 10:30 | DI.RAD_ITS ---
Exam(s) XR HAND RT COMPLETE EXAM: XR HAND RT COMPLETE CLINICAL HISTORY: Pain Swelling of R hand wrist, M79.641,M25.531 R wrist effusion M25.431. TECHNIQUE: 2D digital imaging was performed. Three views. COMPARISON: No exams were available for comparison FINDINGS: Limited positioning due to the finger flexion. BONES: No acute fracture is present. No bony destructive lesion is seen. The bones appear osteopeni c. JOINTS: No dislocation present. Degenerative changes at the 2nd metacarpophalangeal joint. Mild dege nerative changes of the interphalangeal joints. SOFT TISSUE: Soft tissue swelling of the fingers and dorsum of the hand are visible. IMPRESSION: Soft tissue swelling. Mild degenerative changes. DATA REPOSITORY: RADIATION DOSE DELIVERED:
--- NOTE | 2023-03-25 10:30 | DI.RAD_ITS ---
Exam(s) XR WRIST RT COMPLETE EXAM: XR WRIST RT COMPLETE CLINICAL HISTORY: Pain Swelling of R hand wrist, M79.641,M25.531 R wrist effusion M25.431. TECHNIQUE: 2D digital imaging was performed. Three views. COMPARISON: No exams were available for comparison FINDINGS: BONES: No acute fracture is present. No bony destructive lesion is seen. JOINTS: The carpal bones are normally aligned. No significant degenerative changes. SOFT TISSUE: Soft tissue swelling around the wrist IMPRESSION: Soft tissue swelling. DATA REPOSITORY: RADIATION DOSE DELIVERED:
== END 2023-03-25 11:53 ==
LOC: DI 11:33
PROVIDERS: PCP Family Medicine; Visit Provider Nurse Practitioner
DX: M25.431 Effusion, right wrist (principal); M25.531 Pain in right wrist; M79.641 Pain in right hand; M79.89 Other specified soft tissue disorders; I63.9 Cerebral infarction, unspecified
CPT/HCPCS: 73110; 73130

== ENCOUNTER 2023-03-28 16:27 | Inpatient (IN) | payer MEDICARE, OTHER, SELFPAY ==
[2023-03-28] VITALS (41 sets, daily range): BP systolic 119–148; BP diastolic 66–101; PULSE 66–105; RESP 12–29; TEMP 36.2–37; O2SAT 93–96
--- NOTE | 2023-03-28 16:45 | RT.EKG_ITS ---
APPROVED REPORT Exam: Resting ECG Reason for Exam: altered mental status Patient Location: E HR:82 bpm ECG Measurements Heart Rate 82 AXIS VA 141 P 18 QRSd 77 QRS -14 QT 363 T 60 QTc 423 Conclusion Sinus rhythm...normal P axis, V-rate 60- 99
--- NOTE | 2023-03-28 17:15 | DI.CT_ITS ---
Exam(s) CT HEAD WO EXAM: CT HEAD WO CLINICAL HISTORY: h/o left cva, here with altered mentation. TECHNIQUE: Imaging Protocol: Axial computed tomography images with coronal and sagittal reformatted images were created and reviewed COMPARISON: CT CT HEAD WO/W from 06/14/2022 FINDINGS: Ventricles and Extra axial spaces: Normal in size and morphology for the patient's age. Hemorrhage: None. Cerebral parenchyma: There is an old left MCA distribution infarct. There areas of decreased attenua tion in the white matter most consistent with small vessel ischemic disease. Midline shift: None. Brainstem/Cerebellum: Normal. Calvarium: Normal. Visualized Paranasal sinuses/Mastoids: Mild mucosal thickening in the right ethmoid air cells. Other [place] the visualized paranasal sinuses are clear. Soft Tissues: Unremarkable. IMPRESSION: 1. Findings of an old left MCA distribution infarct. 2. If there is concern for acute infarct, an MRI should be considered for further evaluation. RADIATION DOSE DELIVERED: 757.03mGy.cm Total DLP DATA REPOSITORY: All CT scans at this facility are submitted to the National Radiology Data Registry (NRDR) Dose Index Registry (DIR) with the [employer] (ACR). RADIATION OPTIMIZATION: All CT scans at this facility use at least one of these dose optimization te chniques: automated exposure control; mA and/or kV adjustment per patient size (includes targeted exa ms where dose is matched to clinical indication); or iterative reconstruction.
--- NOTE | 2023-03-28 17:39 | ED.GENADUL_ITS ---
Discharge Plan Disposition Patient Disposition: Admit to [facility] Discharge Details Chief Complaint: AMS/LOC Clinical Impression: Acute UTI, Chronic indwelling Fitzpatrick catheter, CVA (cerebral vascular accident) Primary Care Provider: Tomy Jasso ED Provider: Joshua David Home Meds and New Rx's Prescriptions: No Action aspirin [Aspir-81] 81 mg tablet,delayed release (DR/EC) 325 mg PO DAILY Rx Instructions: secondary preventiion coronary disease albuterol sulfate 90 mcg/actuation HFA aerosol inhaler 2 puff inhalation BID atorvastatin 80 mg tablet 80 mg PO DAILY pantoprazole [Protonix] 40 mg tablet,delayed release (DR/EC) 40 mg PO DAILY melatonin 3 mg tablet 6 mg PO HS sennosides-docusate sodium [Senna-Time S] 8.6-50 mg tablet 1 tab-cap PO QHS quetiapine 25 mg tablet 25 mg PO TID Qty: 90 3RF azo cranberry gummies 2 tab PO DAILY lorazepam [Ativan] 1 mg tablet 1 mg PO Q6H PRN (Reason: agitation) Qty: 60 0RF clonazepam 1 mg tablet 1 mg PO HS Qty: 90 1RF Rx Instructions: for night muscle spasms potassium chloride 20 mEq tablet extended release 20 meq PO DAILY Qty: 30 0RF memantine 5 mg tablet 5 mg PO DAILY Qty: 30 0RF cholecalciferol (vitamin D3) 1,000 UNIT tablet 1,000 unit PO DAILY Qty: 100 Rx Instructions: supplement vitamin D acetaminophen [Tylenol Extra Strength] 500 mg tablet 500 mg PO DAILY gabapentin 300 mg capsule 300 mg PO as directed Qty: 270 3RF Rx Instructions: take BID with extra 1 tab prn pain Medical Decision Making 5 --82-year-old male with multiple medical problems including history of CVA with residual right-sided weakness, indwelling Fitzpatrick catheter, frequent urinary tract infections, here with increased confusion, agitation and generalized weakness since this morning. Patient is saturating well and in no respiratory distress. Patient is hemodynamically stable. Concern for likely recurrent urinary tract infection. Plan to change Fitzpatrick catheter and then check urinalysis. No recent urine culture here in microbiology reports of the EMR. Consider acute intracranial hemorrhage/recurrent stroke. Plan to obtain CT of the head. EKG was reviewed and interpreted by me: Sinus rhythm 82 bpm, nondiagnostic, please see report. 2032 --urinalysis reviewed and consistent with acute urinary tract infection. I will give ceftriaxone [address] of the head was interpreted by radiology: Subacute to chronic left-sided infarctions as described with faint areas of laminar necrosis versus faint blood products. Comparison with recent studies would be helpful. Otherwise, consider continued head CT follow-up within 24 hours as clinically indicated I called and spoke with Dr. Ferrara, on-call hospitalist, discussed ED presentation course including diagnostics, he will admit the patient. Care transition at time of admission. Lab Data Lab results reviewed: Yes I reviewed the patient's lab results. Labs: 03/28/23 18:26 Urine - Reflex from Ua Urine Culture - Pending Laboratory Tests Range/Units 03/28/23 03/28/23 03/28/23 17:47 17:47 18:26 WBC (4.4-10.8) 10^3/uL 9.05 RBC (4.36-5.78) 10^6/uL 3.69 L Hgb (13.5-17.5) g/dL 11.7 L Hct (40.0-50.0) % 35.8 L MCV (80-95) fL 97 H MCH (27.0-33.0) pg 31.7 MCHC (32.0-36.0) % 32.7 RDW (11.8-14.1) % 14.1 Plt Count (130-400) 10^3/uL 190 MPV (8.0-11.0) fL 8.9 Immature Gran % 0.3 Neutrophils % 77.0 Lymphocytes % 12.2 Monocytes % 7.7 Eosinophils % 2.5 Basophils % 0.3 Nucleated RBC % (0.0-0.3) % 0.0 Absolute Neutrophils (1.2-6.7) 10^3/uL 6.96 H Absolute Lymphocytes (1.2-3.4) 10^3/uL 1.10 L Absolute Monocytes (0.1-0.8) 10^3/uL 0.70 Absolute Eosinophils (0.0-0.7) 10^3/uL 0.23 Absolute Basophils (0.0-0.2) 10^3/uL 0.03 Sodium (136-145) mmol/L 139 Potassium (3.5-5.1) mmol/L 4.8 Chloride (98-107) mmol/L 104 Carbon Dioxide (21.0-32.0) mmol/L 28.8 Anion Gap (3-11) mmol/L 6.2 BUN (7-18) mg/dL 22 H Creatinine (0.70-1.30) mg/dL 1.2 Est GFR (CKD-EPI 2020) (mL/min/1.73m2) 61.13 Glucose (74-106) mg/dL 108 H Calcium (8.5-10.1) mg/dL 8.9 Magnesium (1.8-2.4) mg/dL 1.9 Total Bilirubin (0.2-1.0) mg/dL 0.3 AST (15-37) U/L 15 ALT (16-63) U/L 20 Alkaline Phosphatase (46-116) U/L 131 H Troponin I (<or=60) ng/L < 50 Total Protein (6.4-8.2) g/dL 7.2 Albumin (3.4-5.0) g/dL 3.2 L Urine Color (Yellow) Yellow Urine Clarity (Clear) Sl Cloudy Urine pH (5-8) 5.5 Ur Specific [place]opold (1.005-1.025) 1.010 Urine Protein (Negative) mg/dL 30 H Urine Ketones (Negative) mg/dL Negative Urine Blood (Negative) Small H Urine Nitrite (Negative) Negative Urine Bilirubin (Negative) Negative Urine Urobilinogen (Up to 0.2) mg/dL 0.2 Ur Leukocyte Esterase (Negative) Large H Urine RBC (0-2) HPF 3-5 H Urine WBC (0-5) HPF >50 H Ur Epithelial Cells (Negative) HPF Rare Urine Crystals (Negative) HPF Negative Urine Bacteria (Negative) HPF Few Urine Casts (Negative) LPF Negative Urine Mucus (Negative) Negative Urine Other (Negative) Few Yeast Ur Culture Indicated? Yes Urine Glucose (Negative) mg/dL Negative HPI General Mode of arrival: EMS . Date/Time Provider Initiated Documentation: 03/28/23 16:48 . Limitations to Documentation: altered mental status . Information obtained by: patient and family . HPI Narrative: 82-year-old male with multimedical problems including history of CVA with residual right-sided weakness, bladder and prostate cancer status postresection, chronic indwelling Fitzpatrick catheter for urinary retention, last had catheter changed over 1 month ago, here today with increased confusion. Patient's daughter notes significant increase in confusion and agitation as well as generalized weakness since this morning. Symptoms are severe with no modifiers. Son and daughter concerned that this may be a recurrent urinary tract infection. He did have urinary tract infection about 3 weeks ago that was treated success with antibiotic and had significant confusion at that time Related Data Home Medications Medication Instructions Recorded Confirmed cholecalciferol (vitamin D3) 25 1,000 unit PO DAILY #100 tab-caps 07/13/14 03/28/23 mcg (1,000 unit) tablet acetaminophen 500 mg tablet 500 mg PO DAILY 05/01/22 03/28/23 (Tylenol Extra Strength) aspirin 81 mg tablet,delayed 325 mg PO DAILY 05/01/22 03/28/23 release (Aspir-) gabapentin 300 mg capsule 300 mg PO as directed #270 tab-caps 07/31/22 03/28/23 albuterol sulfate 90 mcg/actuation 2 puff inhalation BID 03/25/23 03/28/23 aerosol inhaler atorvastatin 80 mg tablet 80 mg PO DAILY 03/25/23 03/28/23 azo cranberry gummies 2 tab PO DAILY 03/25/23 03/28/23 clonazepam 1 mg tablet 1 mg PO HS #90 tabs 03/25/23 03/28/23 lorazepam 1 mg tablet (Ativan) 1 mg PO Q6H PRN agitation #60 tabs 03/25/23 03/28/23 melatonin 3 mg tablet 6 mg PO HS 03/25/23 03/28/23 memantine 5 mg tablet 5 mg PO DAILY #30 tabs 03/25/23 03/28/23 pantoprazole 40 mg tablet,delayed 40 mg PO DAILY 03/25/23 03/28/23 release (Protonix) potassium chloride 20 mEq 20 meq PO DAILY #30 tabs 03/25/23 03/28/23 tablet,extended release quetiapine 25 mg tablet 25 mg PO TID #90 tabs 03/25/23 03/28/23 sennosides 8.6 mg-docusate sodium 1 tab-cap PO QHS 03/25/23 03/28/23 50 mg tablet (Senna-Time S) Previous Rx's Medication Instructions Recorded gabapentin 300 mg capsule 300 mg PO as directed #270 tab-caps 07/31/22 clonazepam 1 mg tablet 1 mg PO HS #90 tabs 03/25/23 lorazepam 1 mg tablet (Ativan) 1 mg PO Q6H PRN agitation #60 tabs 03/25/23 memantine 5 mg tablet 5 mg PO DAILY #30 tabs 03/25/23 potassium chloride 20 mEq 20 meq PO DAILY #30 tabs 03/25/23 tablet,extended release quetiapine 25 mg tablet 25 mg PO TID #90 tabs 03/25/23 Allergies Allergy/AdvReac Type Severity Reaction Status Date / Time shellfish derived Allergy Intermediate severe Verified 03/28/23 16:39 vomiting oxycodone HCl [From Percocet] AdvReac wild Verified 03/28/23 16:39 dreams trazodone AdvReac unknown Verified 03/28/23 16:39 General Stated Complaint: AMS/LOC JACKELINE: 3 Review of Systems Unobtainable due to (Limited secondary to altered mental status but notes no pain) Constitutional Constitutional: Denies fever(s) Respiratory Respiratory: Denies cough PFSH All Active Problems (Updated 03/28/23 @ 20:36 by Joshua David MD) Acute UTI (Acute) Chronic indwelling Fitzpatrick catheter (Acute) CVA (cerebral vascular accident) (Chronic) Dementia with behavioral disturbance (Acute) Altered mental status (Acute) Acute UTI (urinary tract infection) (Acute) Left carotid stenosis (Acute) Indwelling Fitzpatrick catheter present (Chronic) CVA (cerebral vascular accident) (Chronic) Bladder instability (Acute) Memory problem (Acute) Insomnia (Acute) Lower urinary tract symptoms (LUTS) (Acute) Malignant neoplasm of urinary bladder (Acute) Per Rad Onc note from 06/15/21 Arthritis of first metatarsophalangeal (MTP) joint of left foot (Acute) Renal cell cancer (Chronic ~05/2020) Stage 1 Gr 2 Left Bladder mass (Acute) [facility] [place] Cystoscopy 06/01/20 Prostate cancer (Chronic) Prostate fiducial/Space Oar implant 05/17/21 Hematuria (Acute) Nodular prostate without lower urinary tract symptoms (Acute) Essential hypertension (Acute) Alcohol abuse, 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 of [place] coronary artery of [place] heart without angina pectoris (Chronic 08/16/97) ID 08/11/97 cath 80% LAD; CABG X 2 08/1997; shaylee 2000 Coronary atherosclerosis of [place] coronary vessel (Chronic 08/16/97) ID 08/11/97 cath 80% LAD; CABG X 2 08/1997; shaylee 2000 Cramp in limb (Chronic 08/19/12) in cold weather: L MEDIAL THIGH SEVERE; when tired, limps (favor L) Dysmetabolic syndrome X (Chronic 05/26/12) ED (erectile dysfunction) (Chronic 07/13/14) Idiopathic peripheral neuropathy (Chronic 03/12/17) Tobacco dependence syndrome (Chronic 05/26/12) PIPE DAILY Weakness of left leg (Chronic 12/17/16) perceives left leg weaker, ? related to harvesting of veins 1996 Medical History Alcohol abuse Coronary artery disease Hyperlipemia Surgical History Colonoscopy - IV Sedation (10/30/16) 08/21/16 H/O cystoscopy (~10/26/20) [facility] [place] Urology-Dr Plata History of appendectomy History of tonsillectomy Hx of CABG (08/16/97) Hx of cholecystectomy (10/07/01) Inguinal hernia (09/06/03) repair, right S/P hernia repair (02/05/04) right femoral S/P rotator cuff repair SKIN BIOPSY (08/07/15) SEBORRHEIC KERATOSIS SCALP, [place] Basal cell CA nose 2000 Family History Mother , pneumonia at age 74. Diabetes Father , peritonitis at age 57. age 57 cause {in José Antonio sent report of dad's certificate: Primary cause: peritonitis; secondary cause: Lymphoma. Not colon cancer, although he did have chemo and radiation to abdomen.}, ALSO CELIAC DIS. 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 Current gender identity: male What is your relationship status?: Panel score (0-1 are the most socially isolated patients): 0 What type of physical activity do you participate in: none Seatbelt use: always 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 Working smoke detector in home: Yes Fire extinguisher in home: Yes Carbon monox detector in home: Yes Do you feel safe at home: Yes Do you feel safe in your relationship?: Yes Exam Const General: cooperative and no acute distress HENMT Head: normocephalic and atraumatic Mouth: moist mucous membranes Eyes Conjunctivae: normal conjunctivae Sclera: normal sclerae Neck Neck: trachea midline and supple Resp Auscultation: clear to auscultation bilaterally, no rales, no rhonchi and no wheezes Cardio Rate: tachycardic Rhythm: regular rhythm GI Palpation: soft, not firm, no guarding, no masses, not rigid and nontender Skin General skin exam: no rashes or lesions noted Neuro General: patient alert, patient awake, oriented Patient Orientation: Person and Confused and tone normal Other: 5/5 LUE, 4/5 LLE and RLE, 2/5 RUE; left ptosis Extrem General: no edema Other: Psych Appearance: grossly normal Course Vital Signs Vital signs: Vital Signs Temperature 37.0 C 03/28/23 16:31 Pulse 83 03/28/23 16:31 Respiratory Rate 16 03/28/23 16:31 Blood Pressure 119/72 03/28/23 16:31 Pulse Oximetry 93 03/28/23 16:31 Temperature 37.0 C 03/28/23 16:31 Temperature Source Skin 03/28/23 16:31 Pulse 83 03/28/23 16:31 Respiratory Rate 16 03/28/23 16:40 Respiratory Effort Normal 03/28/23 16:40 Respiratory Depth Normal 03/28/23 16:40 Respiratory Pattern Normal 03/28/23 16:40 Blood Pressure 119/72 03/28/23 16:31 Blood Pressure Position Sitting 03/28/23 16:31 Pulse Oximetry 93 03/28/23 16:31 Oxygen Delivery Method Room Air 03/28/23 16:31 Oxygen Flow Rate 0 03/28/23 16:31
[2023-03-28 17:52] LABS: Abs Immature Grans 0.03 10^3/uL (0.0-0.06); Absolute Basophil Count 0.03 10^3/uL (0.0-0.2); Absolute Eosinophil Count 0.23 10^3/uL (0.0-0.7); Absolute Neutrophil Count 6.96 10^3/uL (1.2-6.7); Basophils % 0.3; Eosinophils % 2.5; HCT 35.8 % (40.0-50.0); HGB 11.7 g/dL (13.5-17.5); Immature Grans % 0.3; Lymphocytes % 12.2; MCH 31.7 pg (27.0-33.0); MCHC 32.7 % (32.0-36.0); MCV 97 fL (80-95); MPV 8.9 fL (8.0-11.0); Monocytes % 7.7; Platelet Count 190 10^3/uL (130-400); RBC 3.69 10^6/uL (4.36-5.78); RDW 14.1 % (11.8-14.1); RDW-SD 50.3 fL; WBC 9.05 10^3/uL (4.4-10.8)
[2023-03-28 18:14] LABS: ALT 20 U/L (16-63); AST 15 U/L (15-37); Albumin 3.2 g/dL (3.4-5.0); Alkaline Phosphatase 131 U/L (46-116); Anion Gap 6.2 mmol/L (3-11); BUN 22 mg/dL (7-18); Bilirubin, Total 0.3 mg/dL (0.2-1.0); CO2 28.8 mmol/L (21.0-32.0); CREATININE 1.2 mg/dL (0.70-1.30); Calcium 8.9 mg/dL (8.5-10.1); Chloride 104 mmol/L (98-107); Estimated GFR 61.13 (mL/min/1.73m2); Glucose 108 mg/dL (74-106); Magnesium 1.9 mg/dL (1.8-2.4); Potassium 4.8 mmol/L (3.5-5.1); Sodium 139 mmol/L (136-145); Total Protein 7.2 g/dL (6.4-8.2); Troponin I < 50 ng/L (<or=60)
--- NOTE | 2023-03-28 18:19 | DI.VRAD_ITS ---
PROCEDURE INFORMATION: Exam: CT Head Without Contrast Exam date and time: 03/28/2023 6:11 PM Age: 82 years old Clinical indication: Altered mental status/memory loss; Patient HX: H/o left CVA, altered mentation TECHNIQUE: Imaging protocol: Computed tomography of the head without contrast. COMPARISON: CT HEAD WO/W 06/14/2022 10:25 AM FINDINGS: Brain: Subacute to chronic areas of infarction in the left frontal and parietal lobes with curvilinear areas of increased density which may represent laminar necrosis. Faint hemorrhage can not be completely excluded. Moderate white matter disease. No mass effect. Cerebral ventricles: No ventriculomegaly. Paranasal sinuses: Minimal secretions/mucosal thickening in the right ethmoid air cells. No fluid levels. Mastoid air cells: Visualized mastoid air cells are well aerated. Bones/joints: Unremarkable. No acute fracture. Soft tissues: Unremarkable. IMPRESSION: Subacute to chronic left-sided infarctions as described with faint areas of laminar necrosis versus faint blood products. Comparison with recent studies would be helpful. Otherwise, consider continued head CT follow-up within 24 hours as clinically indicated Dictated and Authenticated by: Alireza Hansen MD. Ordering:TAIWO Lewis MD
[2023-03-28 18:35] LABS: Bilirubin Negative (Negative); Blood Small (Negative); Clarity Sl Cloudy (Clear); Glucose Negative (Negative); Ketones Negative (Negative); Leukocyte Esterase Large (Negative); Nitrite Negative (Negative); Urobilinogen 0.2 mg/dL (Up to 0.2); pH 5.5 (5-8)
[2023-03-28 18:48] LABS: Bacteria Few HPF (Negative); C & S Indicated? Yes; Casts Negative LPF (Negative); Crystals Negative HPF (Negative); Epithelial Cells Rare HPF (Negative); Mucus Negative (Negative); Other Cells Few Yeast (Negative); WBC >50 HPF (0-5)
[2023-03-28] MEDS: cefTRIAXone 1 GM/50 ML BAG IVPB (19:11)
--- NOTE | 2023-03-28 19:57 | HPE_ITS ---
Date of service: 03/28/23 Time of Service: 19:58 Assessment and Plan Assessment and plan (1) Altered mental status: Start date: 03/28/23 Status: Acute Assessment and plan: This is an 82-year-old gentleman now cared for by his daughter at home with dementia which is advanced and status post left CVA with extension upon this admission which may have been causing increased confusion. He also has a UTI with chronic indwelling Fitzpatrick catheter without fever or elevated WBC upon admission. He will be treated aggressively for UTI with his Fitzpatrick catheter change with clear urine and urine cultures obtained. There is a question of extension of his CVA with possible hemorrhage and repeat CT of the head without contrast will be performed in 24 hours. PT and OT will be seen patient in the morning. Swallow evaluation will be done at bedside with speech therapy consultation if needed. He is a DNR/DNI. (2) Acute UTI (urinary tract infection): Start date: 03/28/23 Status: Acute Assessment and plan: With chronic indwelling Fitzpatrick catheter now on IV Rocephin and IV hydration. (3) Indwelling Fitzpatrick catheter present: Status: Chronic Assessment and plan: Changed in the ED now with clear urine draining. (4) CVA (cerebral vascular accident): Status: Chronic Assessment and plan: Left lacunar infarct subacute with possible bleed and right-sided weakness chronically. We will rescan in 24 hours. Observation with PT and OT evaluation in the morning for safe return to home. VTE prophylaxis is contraindicated. Patient daily aspirin will be held. Qualifiers: CVA mechanism: occlusion Laterality of affected vessel: left Precerebral and cerebral artery: middle cerebral artery Qualified Code(s): I63.512 - Cerebral infarction due to unspecified occlusion or stenosis of left middle cerebral artery (5) Dementia with behavioral disturbance: Status: Chronic Assessment and plan: Recently initiated on therapy with progressive disease. Patient is a DNR/DNI. History of Present Illness History of Present Illness Chief Complaint: AMS with increased agitation and behavioral abnormalities Narrative: This is an 82-year-old male patient cared for at home by his daughter who noticed an acute onset of change in behavior the afternoon of admission with increased behavioral abnormalities and agitation. He had no fever or rigors and does have a chronic indwelling Fitzpatrick catheter with urine appearing cloudy the morning of admission. He was brought to the ED with evaluation revealing prob able UTI and because he had had a recent left CVA with left carotid stenosis which involved the frontal lobe on December 23, 2022 and then a second stroke on January 24, 2023 which involved 3 parietal lobe with flaccid right upper extremity with some heaviness of the right lower extremity and worsening dementia with advancing medical therapy. He did go to rehabilitation after his strokes but is at home with his daughter now as noted. The slate splitter daughter offers no further history stating that he was at baseline this morning with therapy which is his new baseline after his strokes. He is a DNR/DNI. Review of Systems Narrative: 13 point review of systems otherwise unrevealing or stable. He denies any peripheral edema or respiratory symptoms. PFSH All Active Problems (Updated 03/28/23 @ 21:16 by Thomas Ferrara) Acute UTI (Acute) Chronic indwelling Fitzpatrick catheter (Acute) CVA (cerebral vascular accident) (Chronic) Dementia with behavioral disturbance (Chronic) Altered mental status (Acute) Acute UTI (urinary tract infection) (Acute) Left carotid stenosis (Acute) Indwelling Fitzpatrick catheter present (Chronic) CVA (cerebral vascular accident) (Chronic) Bladder instability (Acute) Memory problem (Acute) Insomnia (Acute) Lower urinary tract symptoms (LUTS) (Acute) Malignant neoplasm of urinary bladder (Acute) Per Rad Onc note from 06/15/21 Arthritis of first metatarsophalangeal (MTP) joint of left foot (Acute) Renal cell cancer (Chronic ~05/2020) Stage 1 Gr 2 Left Bladder mass (Acute) [facility] [place] Cystoscopy 06/01/20 Prostate cancer (Chronic) Prostate fiducial/Space Oar implant 05/17/21 Hematuria (Acute) Nodular prostate without lower urinary tract symptoms (Acute) Essential hypertension (Acute) Alcohol abuse, 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 of [place] coronary artery of [place] heart without angina pectoris (Chronic 08/16/97) PA 08/11/97 cath 80% LAD; CABG X 2 08/1997; zaria 2000 Coronary atherosclerosis of [place] coronary vessel (Chronic 08/16/97) PA 08/11/97 cath 80% LAD; CABG X 2 08/1997; shaylee 2000 Cramp in limb (Chronic 08/19/12) in cold weather: L MEDIAL THIGH SEVERE; when tired, limps (favor L) Dysmetabolic syndrome X (Chronic 05/26/12) ED (erectile dysfunction) (Chronic 07/13/14) Idiopathic peripheral neuropathy (Chronic 03/12/17) Tobacco dependence syndrome (Chronic 05/26/12) PIPE DAILY Weakness of left leg (Chronic 12/17/16) perceives left leg weaker, ? related to harvesting of veins 1996 Medical History Alcohol abuse Coronary artery disease Hyperlipemia Surgical History Colonoscopy - IV Sedation (10/30/16) 08/21/16 H/O cystoscopy (~10/26/20) [facility] [place] Urology-Dr Plata History of appendectomy History of tonsillectomy Hx of CABG (08/16/97) Hx of cholecystectomy (10/07/01) Inguinal hernia (09/06/03) repair, right S/P hernia repair (02/05/04) right femoral S/P rotator cuff repair SKIN BIOPSY (08/07/15) SEBORRHEIC KERATOSIS SCALP, Elisabet Basal cell CA nose 2000 Family History Mother , pneumonia at age 74. Diabetes Father , peritonitis at age 57. age 57 cause {in José Antonio sent report of dad's certificate: Primary cause: peritonitis; secondary cause: Lymphoma. Not colon cancer, although he did have chemo and radiation to abdomen.}, ALSO CELIAC DIS. 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 Current gender identity: male What is your relationship status?: Panel score (0-1 are the most socially isolated patients): 0 What type of physical activity do you participate in: none Seatbelt use: always Drive intox or ride w/intox driver education instructor: No Working smoke detector in home: Yes Fire extinguisher in home: Yes Carbon monox detector in home: Yes Do you feel safe at home: Yes Do you feel safe in your relationship?: Yes Meds Allergies and Home Medications Allergies Allergy/AdvReac Type Severity Reaction Status Date / Time shellfish derived Allergy Intermediate severe Verified 03/28/23 16:39 vomiting oxycodone HCl [From Percocet] AdvReac wild Verified 03/28/23 16:39 dreams trazodone AdvReac unknown Verified 03/28/23 16:39 Home Medications Medication Instructions Recorded Confirmed Type cholecalciferol (vitamin D3) 25 1,000 unit PO DAILY #100 tab-caps 07/13/14 03/28/23 History mcg (1,000 unit) tablet acetaminophen 500 mg tablet 500 mg PO DAILY 05/01/22 03/28/23 History (Tylenol Extra Strength) aspirin 81 mg tablet,delayed 325 mg PO DAILY 05/01/22 03/28/23 History release (Aspir-) gabapentin 300 mg capsule 300 mg PO as directed #270 tab-caps 07/31/22 03/28/23 Rx albuterol sulfate 90 mcg/actuation 2 puff inhalation BID 03/25/23 03/28/23 History aerosol inhaler atorvastatin 80 mg tablet 80 mg PO DAILY 03/25/23 03/28/23 History azo cranberry gummies 2 tab PO DAILY 03/25/23 03/28/23 History clonazepam 1 mg tablet 1 mg PO HS #90 tabs 03/25/23 03/28/23 Rx lorazepam 1 mg tablet (Ativan) 1 mg PO Q6H PRN agitation #60 tabs 03/25/23 03/28/23 Rx melatonin 3 mg tablet 6 mg PO HS 03/25/23 03/28/23 History memantine 5 mg tablet 5 mg PO DAILY #30 tabs 03/25/23 03/28/23 Rx pantoprazole 40 mg tablet,delayed 40 mg PO DAILY 03/25/23 03/28/23 History release (Protonix) potassium chloride 20 mEq 20 meq PO DAILY #30 tabs 03/25/23 03/28/23 Rx tablet,extended release quetiapine 25 mg tablet 25 mg PO TID #90 tabs 03/25/23 03/28/23 Rx sennosides 8.6 mg-docusate sodium 1 tab-cap PO QHS 03/25/23 03/28/23 History 50 mg tablet (Senna-Time S) Exam Narrative Exam Narrative: General: Patient appears older than stated age with slow speech and monotonous tone, he is in no acute distress and is alert and oriented at least to person and place. HEENT: Normocephalic with coarsened facial features, slight facial droop, eyes with pupils equal and reactive light symmetrically, extraocular movement intact and sclera anicteric. Oropharynx with dry mucosa. Neck: Supple without JVD. Lungs: Fair aeration with bronchovesicular breath sounds diffusely, no focalizing rales or rhonchi. No expiratory wheeze with increased expiratory phase. Heart: Regular rate and rhythm with no murmurs or gallops appreciated. Abdomen: Obese contour, soft nontender to palpation with no palpable hepatomegaly. Bowel sounds positive in all quadrants. Genitalia/rectal: Exam deferred. Patient does have indwelling Fitzpatrick catheter draining clear urine after fluid boluses. Extremities: Without clubbing, cyanosis or pitting edema but nonpitting edema aspect of the right leg with decreased movement. Fair capillary refill. Skin: Pale, warm and dry with actinic changes over sun exposed areas. Neuro: Cranial nerves II through XII gross intact, right upper extremity is flaccid without movement and right lower extremity has 3 out of 5 strength being up to move against gravity and slight resistance. No tremor. Speech is slow. Psych: Can affect with depressed mood. No abnormal thought processes. Remote memory intact with recent memory not intact. Results Imaging Imaging Studies: Exam: CT Head Without Contrast Exam date and time: 03/28/2023 6:11 PM Age: 82 years old Clinical indication: Altered mental status/memory loss; Patient HX: H/o left CVA, altered mentation TECHNIQUE: Imaging protocol: Computed tomography of the head without contrast. COMPARISON: CT HEAD WO/W 06/14/2022 10:25 AM FINDINGS: Brain:? Subacute to chronic areas of infarction in the left frontal and parietal lobes with curvilinear areas of increased density which may represent laminar necrosis. Faint hemorrhage can not be completely excluded. Moderate white matter disease. No mass effect. Cerebral ventricles: No ventriculomegaly. Paranasal sinuses:? Minimal secretions/mucosal thickening in the right ethmoid air cells. No fluid levels. Mastoid air cells: Visualized mastoid air cells are well aerated. Bones/joints: Unremarkable. No acute fracture. Soft tissues: Unremarkable. IMPRESSION: Subacute to chronic left-sided infarctions as described with faint areas of laminar necrosis versus faint blood products. Comparison with recent studies would be helpful. Otherwise, consider continued head CT follow-up within 24 hours as clinically indicated Labs 03/28/23 17:47 03/28/23 17:47 Labs: Laboratory Results - last 24 hr 03/28/23 03/28/23 03/28/23 17:47 17:47 18:26 WBC 9.05 RBC 3.69 L Hgb 11.7 L Hct 35.8 L MCV 97 H MCH 31.7 MCHC 32.7 RDW 14.1 Plt Count 190 MPV 8.9 Immature Gran % 0.3 Neutrophils % 77.0 Lymphocytes % 12.2 Monocytes % 7.7 Eosinophils % 2.5 Basophils % 0.3 Nucleated RBC % 0.0 Absolute Neutrophils 6.96 H Absolute Lymphocytes 1.10 L Absolute Monocytes 0.70 Absolute Eosinophils 0.23 Absolute Basophils 0.03 Sodium 139 Potassium 4.8 Chloride 104 Carbon Dioxide 28.8 Anion Gap 6.2 BUN 22 H Creatinine 1.2 Est GFR (CKD-EPI 2020) 61.13 Glucose 108 H Calcium 8.9 Magnesium 1.9 Total Bilirubin 0.3 AST 15 ALT 20 Alkaline Phosphatase 131 H Troponin I < 50 Total Protein 7.2 Albumin 3.2 L Urine Color Yellow Urine Clarity Sl Cloudy Urine pH 5.5 Ur Specific [place] 1.010 Urine Protein 30 H Urine Ketones Negative Urine Blood Small H Urine Nitrite Negative Urine Bilirubin Negative Urine Urobilinogen 0.2 Ur Leukocyte Esterase Large H Urine RBC 3-5 H Urine WBC >50 H Ur Epithelial Cells Rare Urine Crystals Negative Urine Bacteria Few Urine Casts Negative Urine Mucus Negative Urine Other Few Yeast Ur Culture Indicated? Yes Urine Glucose Negative Last Vital Signs Temp 37.0 C 03/28/23 16:31 Pulse 83 03/28/23 16:31 Resp 16 03/28/23 16:40 BP 119/72 03/28/23 16:31 Pulse Ox 93 03/28/23 16:31 Time Spent Time spent with Patient: >75 minutes Time was spent: preparing to see the patient(eg.review tests), obtaining and/or reviewing separately otained hiistory, ordering medications,tests, procedures, referring, communicating with other health child care supervisor, indepentently interpreting results and care coordination
[2023-03-28 20:56] LABS: TSH (W/Ref FT4) 1.18 uIU/mL (0.36-3.74)
[2023-03-28] MEDS: Melatonin 3 MG TAB 6 MG PO (22:11)
[2023-03-28] MEDS: clonazePAM 1 MG TAB PO (22:11)
[2023-03-28] MEDS: LORazepam 1 MG TAB PO (22:11)
[2023-03-28] MEDS: QUEtiapine 25 MG TAB PO (22:49)
[2023-03-29] VITALS (9 sets, daily range): BP systolic 117–171; BP diastolic 77–121; PULSE 62–119; RESP 17–18; TEMP 36.3–38.3; O2SAT 91–95
--- NOTE | 2023-03-29 | DI.CT_ITS ---
Exam(s) CT HEAD CERVICAL SPINE WO EXAM: CT HEAD CERVICAL SPINE WO CLINICAL HISTORY: Fall in patient room; hematoma occiput. TECHNIQUE: Imaging Protocol: Axial computed tomography images with coronal and sagittal reformatted images were created and reviewed COMPARISON: CT CT CHEST LUNG CANCER SCREEN from 05/20/[address] HEAD WO from 03/29/2023 FINDINGS: Head CT Ventricles and Extra axial spaces: Normal in size and morphology for the patient's age. Hemorrhage: None. Cerebral parenchyma: Atrophy. White matter changes of small vessel disease. Old left frontal/pariet al infarcts. No new infarct visible. Midline shift: None. Brainstem/Cerebellum: Normal. Calvarium: Normal. Visualized Paranasal sinuses/Mastoids: Mild mucosal thickening. Cervical Spine CT BONES: Vertebral body heights are maintained. Alignment is normal. There is no evidence of acute frac ture. Stable mild compression fracture of the superior endplate of T3. Degenerative disc changes and facet degenerative changes are seen . SOFT TISSUES: No paraspinal hematoma. The airway appears intact. No pneumothorax is seen at the lung apices. Evaluation of the lungs is limited by respiratory motion . Scarring is present. Stable nodular area of scarring in the right upper lobe. IMPRESSION: Head CT: Old left frontal parietal infarct. No acute abnormality. C-spine CT: Degenerative changes, no acute abnormality. RADIATION DOSE DELIVERED: 1,304.35mGy.cm Total DLP DATA REPOSITORY: All CT scans at this facility are submitted to the National Radiology Data Registry (NRDR) Dose Index Registry (DIR) with the [employer] (ACR). RADIATION OPTIMIZATION: All CT scans at this facility use at least one of these dose optimization te chniques: automated exposure control; mA and/or kV adjustment per patient size (includes targeted exa ms where dose is matched to clinical indication); or iterative reconstruction.
[2023-03-29] MEDS: Normal Saline 1,000 ML 100 ML IV ×2 (04:25→18:10)
[2023-03-29] MEDS: Normal Saline Flush 10 ML SYR IVP ×2 (04:25→18:09)
[2023-03-29] MEDS: Cholecalciferol (Vitamin D3) 1,000 UNIT TAB 1000 UNITS PO (07:56)
[2023-03-29] MEDS: Gabapentin 300 MG CAP PO ×2 (07:56→19:48)
[2023-03-29] MEDS: Pantoprazole 40 MG TABCR PO (07:56)
[2023-03-29] MEDS: Potassium Chloride 20 MEQ TABCR PO (07:56)
[2023-03-29] MEDS: Memantine 5 MG TAB PO (07:56)
[2023-03-29] MEDS: QUEtiapine 25 MG TAB PO ×3 (07:56→19:48)
[2023-03-29 08:05] LABS: HCT 35.4 % (40.0-50.0); HGB 11.9 g/dL (13.5-17.5); MCH 32.7 pg (27.0-33.0); MCHC 33.6 % (32.0-36.0); MCV 97 fL (80-95); MPV 8.9 fL (8.0-11.0); Platelet Count 204 10^3/uL (130-400); RBC 3.64 10^6/uL (4.36-5.78); RDW 13.9 % (11.8-14.1); RDW-SD 50.2 fL; WBC 10.49 10^3/uL (4.4-10.8)
[2023-03-29 08:29] LABS: ALT 21 U/L (16-63); AST 17 U/L (15-37); Albumin 3.2 g/dL (3.4-5.0); Alkaline Phosphatase 132 U/L (46-116); Anion Gap 7.4 mmol/L (3-11); BUN 18 mg/dL (7-18); Bilirubin, Total 0.4 mg/dL (0.2-1.0); CO2 29.6 mmol/L (21.0-32.0); CREATININE 1.2 mg/dL (0.70-1.30); Chloride 105 mmol/L (98-107); Estimated GFR 61.13 (mL/min/1.73m2); Glucose 98 mg/dL (74-106); Potassium 4.3 mmol/L (3.5-5.1); Sodium 142 mmol/L (136-145); Total Protein 7.3 g/dL (6.4-8.2)
--- NOTE | 2023-03-29 09:13 | INITIAL_ITS ---
Date of service: 03/29/23 Time of Service: 09:13 Care Management Initial Assmt Initial Assessment REASON FOR HOSPITALIZATION:: AMS and UTI PREVIOUS FUNCTIONAL STATUS/SOCIAL/FAMILY SUPPORTS:: José Antonio lives alone in his home in [place], [place]. His step daughter Nahomi has been staying with him for the past 2 weeks since he was discharged from [facility] where he was in SB-1 status for about 3 months. He also has 4 sons, Jose, Wilfrid Dickson and Addison. José Antonio is . 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 He requires assistance with ADLs and 24/7 care and monitoring. CURRENT FUNCTIONAL STATUS:: José Antonio was sitting up in bed when CM met with him. He was obviously confused, but in very good spirits. José Antonio had a male visitor named Greg who joined in the conversation. CM was able to speak to 2 of José Antonio's sons (Jose and Addison who is his DPOA) and his step daughter Nahomi. It has become clear to them that he cannot be at home alone. The family had hoped to be able to provide 24/7 caregivers and keep him at home for the summer but it does not appear that will be possible. They are seeking short term rehab then marine oil terminal superintendent care for him. José Antonio does have the resources to pay for at least a year out of pocket, so having a payer source will not be an issue. The family will provide a list of facilities to CM on Saturday and referrals will be sent. ADVANCE DIRECTIVES:: none on file Has patient been provided with info about the portal/API?: Yes Did the patient sign up for the portal?: No CODE STATUS:: DNR/DNI INSURANCE COVERAGE / FINANCIAL ISSUES:: Medicare [place] [employer] PRIMARY CARE PHYSICIAN:: Tomy Jasso POTENTIAL DISCHARGE NEEDS:: follow up with PCP and plan of care may need placement in LTC facility PATIENT/FAMILY EDUCATION NEEDS:: Review of discharge instructions, limitations, activity, follow up plan, discuss Ask Me Three TRANSPORTATION:: to be determined by disposition PLAN:: José Antonio will likely transfer to a SNF for rehab followed by marine oil terminal superintendent care. The family will provide CM with their preferred facilities on Saturday and referrals will be sent. CM will follow and continue to assess for discharge planning concerns. PFSH All Active Problems (Updated 03/28/23 @ 21:16 by Thomas Ferrara) Acute UTI (Acute) Chronic indwelling Fitzpatrick catheter (Acute) CVA (cerebral vascular accident) (Chronic) Dementia with behavioral disturbance (Chronic) Altered mental status (Acute) Acute UTI (urinary tract infection) (Acute) Left carotid stenosis (Acute) Indwelling Fitzpatrick catheter present (Chronic) CVA (cerebral vascular accident) (Chronic) Bladder instability (Acute) Memory problem (Acute) Insomnia (Acute) Lower urinary tract symptoms (LUTS) (Acute) Malignant neoplasm of urinary bladder (Acute) Per Rad Onc note from 06/15/21 Arthritis of first metatarsophalangeal (MTP) joint of left foot (Acute) Renal cell cancer (Chronic ~05/2020) Stage 1 Gr 2 Left Bladder mass (Acute) [facility] Cystoscopy 06/01/20 Prostate cancer (Chronic) Prostate fiducial/Space Oar implant 05/17/21 Hematuria (Acute) Nodular prostate without lower urinary tract symptoms (Acute) Essential hypertension (Acute) Alcohol abuse, 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 of [place] coronary artery of [place] heart without angina pectoris (Chronic 08/16/97) [place] 08/11/97 cath 80% LAD; CABG X 2 08/1997; shaylee 2000 Coronary atherosclerosis of [place] coronary vessel (Chronic 08/16/97) [place] 08/11/97 cath 80% LAD; CABG X 2 08/1997; shaylee 2000 Cramp in limb (Chronic 08/19/12) in cold weather: L MEDIAL THIGH SEVERE; when tired, limps (favor L) Dysmetabolic syndrome X (Chronic 05/26/12) ED (erectile dysfunction) (Chronic 07/13/14) Idiopathic peripheral neuropathy (Chronic 03/12/17) Tobacco dependence syndrome (Chronic 05/26/12) PIPE DAILY Weakness of left leg (Chronic 12/17/16) perceives left leg weaker, ? related to harvesting of veins 1996 Medical History Alcohol abuse Coronary artery disease Hyperlipemia Surgical History Colonoscopy - IV Sedation (10/30/16) 08/21/16 H/O cystoscopy (~10/26/20) [facility] Urology-Dr Plata History of appendectomy History of tonsillectomy Hx of CABG (08/16/97) Hx of cholecystectomy (10/07/01) Inguinal hernia (09/06/03) repair, right S/P hernia repair (02/05/04) right femoral S/P rotator cuff repair SKIN BIOPSY (08/07/15) SEBORRHEIC KERATOSIS SCALP, [place] Basal cell CA nose 2000 Family History Mother , pneumonia at age 74. Diabetes Father , peritonitis at age 57. age 57 cause {in José Antonio sent report of dad's certificate: Primary cause: peritonitis; secondary cause: Lymphoma. Not colon cancer, although he did have chemo and radiation to abdomen.}, ALSO CELIAC DIS. 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
[2023-03-29] MEDS: LORazepam 1 MG TAB PO ×2 (10:51→21:07)
--- NOTE | 2023-03-29 13:15 | IN_ITS ---
Date of service: 03/29/23 Time of Service: 11:52 PT Notes Visit Reasons: AMS, UTI, Right VCA w/ Possible Hemorrhage Physical Therapy Inpatient Initial Evaluation Date: 03/29/2023 Referring Doctor: Thomas Ferrara MD PT Orders: PT CONSULT: Limited ability Precautions: High fall risk. Standard. Chronic right-sided hemiparesis. Patient Profile/Admitting Diagnosis: Salas is an 82-year-old male who presented to the ED on 03/28/2023 due to worsening confusion, agitation, and generalized weakness. Patient is admitted due to for management of altered mental status, acute urinary tract infection, late effects of left lacunar infarct, and dementia with behavioral disturbances. Per new imaging, there may be possible re-bleed and worsened right-sided weakness. PMHX: All Active Problems?(Updated 03/28/23 @ 21:16 by Thomas Ferrara) Acute UTI (Acute) Chronic indwelling Fitzpatrick catheter (Acute) CVA (cerebral vascular accident) (Chronic) Dementia with behavioral disturbance (Chronic) Altered mental status (Acute) Acute UTI (urinary tract infection) (Acute) Left carotid stenosis (Acute) Indwelling Fitzpatrick catheter present (Chronic) CVA (cerebral vascular accident) (Chronic) Bladder instability (Acute) Memory problem (Acute) Insomnia (Acute) Lower urinary tract symptoms (LUTS) (Acute) Malignant neoplasm of urinary bladder (Acute) Per Rad Onc note from 06/15/21 Arthritis of first metatarsophalangeal (MTP) joint of left foot (Acute) Renal cell cancer (Chronic ~05/2020) Stage 1 Gr 2? 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 SEVERE; when tired, limps (favor L) Dysmetabolic syndrome X (Chronic 05/26/12) ED (erectile dysfunction) (Chronic 07/13/14) Idiopathic peripheral neuropathy (Chronic 03/12/17) Tobacco dependence syndrome (Chronic 05/26/12) PIPE DAILY Weakness of left leg (Chronic 12/17/16) perceives left leg weaker, ? related to harvesting of veins 1997 Medical History? Alcohol abuse Coronary artery disease Hyperlipemia Surgical History? Colonoscopy - IV Sedation (10/30/16) 08/21/16 H/O cystoscopy (~10/26/20) [facility] Urology-Dr Plata History of appendectomy History of tonsillectomy Hx of CABG (08/16/97) Hx of cholecystectomy (10/07/01) Inguinal hernia (09/06/03) repair,? right S/P hernia repair (02/05/04) right femoral S/P rotator cuff repair SKIN BIOPSY (08/07/15) SEBORRHEIC KERATOSIS SCALP, [place] Basal cell CA nose 2000 Social History/Home Situation: Unreliable historian. Please review CM notes. Equipment Owned/DME: Unreliable historian. Please review CM notes. Subjective: Confused but pleasant, agreeable to doing session/consult with PT. States that his of 30 years pre- him and that he has a second waiting outside in the truck for him whenever he is ready to go home. Later in the session, patient stated that he does not have a second . Objective: General Observation: Supine Mental Status: Alert and oriented as to person only. Able to follow single-step commands. Pain: No report throughout session Vital Signs: Closely monitored by nursing staff ROM: Right Upper Extremity: R UE flaccid, no active movement demonstrated. Slight active flexion at MCP and IP joints. Left Upper Extremity: Shoulder Flexion WFL. Shoulder abduction WFL. Elbow flexion WFL. Wrist flexion WFL. Functional opening and closing of hand WFL. Right Lower Extremity: Hip flexion WFL. Hip abduction WFL. Knee flexion 45 to 90 degrees. Knee extension -45 degrees. Ankle dorsiflexion -10 degrees. Ankle p lantarflexion 10 degrees to 30 degrees. Left Lower Extremity: Hip flexion WFL. Hip abduction WFL. Knee flexion 45 to 90 degrees. Knee extension -45 degrees. Ankle dorsiflexion WFL. Ankle plantarflexi on WFL. Strength: Right Upper Extremity: Shoulder flexors 0/5. Shoulder abductors 0/5. Elbow flexors 0/5. Elbow extensors 0/5. Machine Stripper Cutter very weak and noon-functional. Left Upper Extremity: Shoulder flexors 4-/5. Shoulder abductors 4-/5. Elbow flexors 4-/5. Elbow extensors 4-/5. Machine Stripper Cutter strong. Right Lower Extremity: Hip flexors 4-/5. Hip abductors 4-/5. Knee flexors 4-/5. Knee extensors 4-/5. Ankle dorsiflexors 4-/5. Ankle plantarflexors 4/5. Left Lower Extremity: Hip flexors 4/5. Hip abductors 4/5. Knee flexors 4/5. Knee extensors 4/5. Ankle dorsiflexors 4/5. Ankle plantarflexors 4/5. Bed Mobility/Transfers: Supine to sit minimal assist with HOB 45 degrees Sit to stand minimal assist Stand to sit minimal assist Bed to reclining chair with minimal assist Gait: Instructed patient with level surface ambulation of 50 feet + 50 feet requiring minimal assist of 2. Unable to fully extend either knee at midstance. No hip extension on either side. Trunk flexion excessive. Maximal verbal cues needed for safe gait pattern, posture, and hemiwalker management. Balance: Static Sitting: Normal Dynamic Sitting: Normal Static Standing: Fair Dynamic Standing: Fair Special Tests: Mobility Limitations Standardized Measure [facility] AM-PAC 6 clicks Basic Mobility Inpatient Short Form: Raw Score: 12 CMS Score: 69% deficit Informed Consent/Education: Patient was instructed in purpose of PT consult and plan of care. Agreeable to proceed with established PT POC to achieve personal goals. ASSESSMENT: Confused due to acute UTI and effects of CVA process (both acute and chronic) as well as to pre-existing dementia, required frequent redirection. Able to follow simple, single step commands. R UE severely hypotonic with no active movement in R shoulder, elbow, and wrist. MCP and IP flexion miniscule. gait pattern unsafe at this time, requires assist of 2 for all mobility ADL performance. Patient presents with clinical signs and symptoms consistent with current/admitting diagnoses that have resulted to mobility limitations, gait instability, generalized weakness, and overall ADL decline as demonstrated by the following impairment level findings: 1. R-side hemiparesis 2. Impaired sitting/standing balance 3. Impaired activity tolerance 4. Pre-existing generalized weakness Impairments are contributing to the following functional limitations: 1. Decline in bed mobility skills 2. Decline in transfer skills 3. Difficulty with ambulation without assistive device and physical assistance 4. Increased completion time for mobility ADL performance 5. Increased risk for falls 6. Difficulty with managing steps alone safely Patient is assessed as a 54209 high complexity based on the following: History: 82-year-old male with past medical history as indicated above Examination: Demonstrable impairment in strength, balance, and mobility level with underlying impairments and functional limitations as exhibited above as well as deficit score of 69% utilizing the [facility] Mobility Inpatient Short Form Presentation: Evolving Decision Makin moderate complexity Goals: Goals X1 week 1. Supine-Sit independent 2. Sit-Supine independent 3. Sit-Stand stand by assist with hemiwalker vs FWW 4. Stand-Sit stand by assist with hemiwalker vs FWW 5. Bed-Chair stand by assist with hemiwalker vs FWW 6. Chair-Bed stand by assist with hemiwalker vs FWW 7. Contact guard assist with gait on level surface with use of hemiwalker for at least 100 feet without report of pain nor dyspnea 8. Fair static and dynamic standing balance/tolerance Plan of Care/Treatment Plan: 1-2x/day, 7 days/week x 1 week. Plan of care has been reviewed with the INSURANCE AGENCY MANAGER providing the service under Physical Therapy direction. Initiate Physical Therapy intervention for pain management as needed, strengthening, bed mobility, transfers, gait, stairs, balance training, and use of assistive device. DISCHARGE RECOMMENDATIONS: [] Home with no services [] [] Home with services [specify] [] Home with outpatient PT [] [] SNF for continued rehabilitation [] [] [employer] Machine Tender Care [] [] SNF versus LTC based on ability to participate and progress [] [X] SNF vs LTC based on availability of caregivers at home and on progress towards goals TREATMENT CODE/TIME: 35808 x 22 minutes beginning at 11:52 AM. Thank you for the opportunity to participate in the care of this patient. Jami Moreno PT, DPT, CLT [facility] [place], [place]
--- NOTE | 2023-03-29 17:09 | DI.VRAD_ITS ---
PROCEDURE INFORMATION: Exam: CT Head Without Contrast Exam date and time: 03/29/2023 16:34 Age: 82 years old Clinical indication: Injury or trauma; Other: Fall in patient room; Hematoma occiput TECHNIQUE: Imaging protocol: Computed tomography of the head without contrast. COMPARISON: CT HEAD WO 03/29/2023 08:58 FINDINGS: Brain: Atrophy and chronic appearing white matter changes. Physiologic calcification in the basal ganglia. Nonacute left frontal and parietal infarcts are again seen. Cortical calcifications favored over microhemorrhage at these locations, similar to recent imaging. No edema or hemorrhage. Cerebral ventricles: Ex vacuo dilation of the ventricular system. Paranasal sinuses: Minor right ethmoid sinus mucosal thickening. Similar finding right maxillary sinuses. Mastoid air cells: No mastoid effusion. Orbital cavities: Postsurgical changes in the globes. Bones/joints: No acute fracture. Soft tissues: No suspicious lesions. IMPRESSION: 1. No acute intracranial findings. 2. Incidental findings as described. PROCEDURE INFORMATION: Exam: CT Cervical Spine Without Contrast Exam date and time: 03/29/2023 16:34 Age: 82 years old Clinical indication: Injury or trauma; Other: Fall in patient room; Hematoma occiput TECHNIQUE: Imaging protocol: Computed tomography of the cervical spine without contrast. COMPARISON: NM BONE SCAN WHOLE BODY GRP 05/20/2020 13:15 FINDINGS: Bones/joints: Exaggerated cervical lordosis. Demineralization minor multilevel degenerative listhesis. Chronic minor loss of height visualized thoracic spine. Disc space narrowing without vlad central canal stenosis. Multilevel neural foraminal stenosis. Lungs: Motion in the lung apices, not well assessed. There may be a small right apical nodule. Follow-up as per institutional protocol. Soft tissues: No suspicious lesions. IMPRESSION: 1. No cervical spine fracture. 2. Incidental findings as described. Dictated and Authenticated by: Abbey Yuen MD. Ordering:KALPESH Mijares MD
--- NOTE | 2023-03-29 17:13 | PTTR_ITS ---
PT Notes Visit Reasons: AMS, UTI, Right VCA w/ Possible Hemorrhage Physical Therapy Inpatient Treatment Note Date: 03/29/2023 Precautions: High fall risk. Standard.? Chronic right-sided hemiparesis. Impaired safety awareness. Subjective: Much more confused this afternoon. agreed to have another walk. He is adamant that he is going home and that he is only staying on his chair for 10-20 minutes as his was waiting at the parking lot for him. Got mildly agitated that nobody asked his permission about staying the night. Charge Nurse Jess was made aware of patient's sentiments and of plans to NOT stay the night. Objective: General Observation: Resting in bed. Bed and chair alarms on. Fitzpatrick catheter in place. Mental Status: Perseverated on needing to go home tonight as he has vending machines he needed to tend to. Pain: No report throughout session Vital Signs: Closely monitored by nursing staff Bed Mobility/Transfers: Supine to sit minimal assist bed flat Sit to stand minimal assist Stand to sit minimal assist Bed to reclining chair with minimal assist Gait: Trialled use of hemiwalker on the L side for level surface ambulation of 50 feet + 50 feet requiring minimal assist of 2.? Nurse Cyndi assisted for safety. Unable to fully extend either knee at midstance.? No hip extension on either side.? Trunk flexion excessive.? Maximal verbal cues needed for safe gait pattern,? posture, and hemiwalker management. Balance: Static Sitting: Normal Dynamic Sitting: Normal Static Standing: Fair Dynamic Standing: Fair ASSESSMENT: Has eloping tendencies. May benefit from one on one caregiver. Confused due to acute UTI and effects of CVA process (both acute and chronic) as well as to pre- existing dementia,? required frequent redirection.? Able to follow simple, single step commands.? R UE severely hypotonic with no active movement in R shoulder,? elbow, and wrist. MCP and IP flexion miniscule. gait pattern unsafe at this time,? requires assist of 2 for all mobility ADL performance. DISCHARGE RECOMMENDATIONS: [] ? Home with no services [] [] ? Home with services [specify] [] ? Home with outpatient PT [] [] ? SNF for continued rehabilitation [] [] ? Psychiatric Aides Teacher Care [] [] ? SNF versus LTC based on ability to participate and progress [] [X]? SNF vs LTC based on availability of caregivers at home and on progress towards goals TREATMENT CODE/TIME: 49105 x 38 minutes beginning at 15:06 PM.
--- NOTE | 2023-03-29 18:00 | DI.CT_ITS ---
Exam(s) CT HEAD WO EXAM: CT HEAD WO CLINICAL HISTORY: Left CVA question hemorrhage. TECHNIQUE: Imaging Protocol: Axial computed tomography images with coronal and sagittal reformatted images were created and reviewed COMPARISON: CT CT HEAD WO/W from 06/14/[address] HEAD WO from 03/28/2023 FINDINGS: Ventricles and Extra axial spaces: Normal in size and morphology for the patient's age. Hemorrhage: No change in appearance of the brain compared to the prior examination. No definite evid ence of hemorrhage is seen. Cerebral parenchyma: There is an old left MCA distribution infarct again seen. No acute infarct is s een. Midline shift: None. Brainstem/Cerebellum: Normal. Calvarium: Normal. Visualized Paranasal sinuses/Mastoids: Mild mucosal thickening is seen in the ethmoid air cells and r ight maxillary sinus. The remaining visualized paranasal sinuses and mastoid air cells are clear. Soft Tissues: Unremarkable. IMPRESSION: No change in appearance of the brain compared to the prior examination. RADIATION DOSE DELIVERED: 732.93mGy.cm Total DLP DATA REPOSITORY: All CT scans at this facility are submitted to the National Radiology Data Registry (NRDR) Dose Index Registry (DIR) with the [employer] (ACR). RADIATION OPTIMIZATION: All CT scans at this facility use at least one of these dose optimization te chniques: automated exposure control; mA and/or kV adjustment per patient size (includes targeted exa ms where dose is matched to clinical indication); or iterative reconstruction.
[2023-03-29] MEDS: LORazepam 2 MG/ML VIAL 1 MG IVP (18:10)
[2023-03-29] MEDS: cefTRIAXone 1 GM/50 ML BAG IVPB (18:10)
--- NOTE | 2023-03-29 18:30 | PGE_ITS ---
Date of Service Date of service: 03/29/23 Time of Service: 18:30 Assessment and Plan Assessment and plan (1) Altered mental status: Status: Acute Assessment and plan: lives with his daughter Baseline dementia which is advanced and status post left CVA with extension. There is a question of extension of his CVA with possible hemorrhage and repeat CT of the head without contrast was performed and negative. (2) Acute UTI (urinary tract infection): Status: Acute Assessment and plan: With chronic indwelling Fitzpatrick catheter, changed in ED, continue IV Rocephin and IV hydration. (3) Indwelling Fitzpatrick catheter present: Status: Chronic Assessment and plan: Changed in the ED now with clear urine draining. (4) CVA (cerebral vascular accident): Status: Chronic Assessment and plan: Left lacunar infarct subacute with possible bleed and right-sided weakness chronically. VTE prophylaxis is contraindicated. Hold ASA Qualifiers: CVA mechanism: occlusion Precerebral and cerebral artery: middle cerebral artery Laterality of affected vessel: left Qualified Code(s): I63.512 - Cerebral infarction due to unspecified occlusion or stenosis of left middle cerebral artery (5) Dementia with behavioral disturbance: Status: Chronic Assessment and plan: Recently initiated on therapy with progressive disease. Patient is a DNR/DNI. Subjective Subjective Patient reports: no new complaints, tolerating a regular diet, bowel movement and afebrile; denies diarrhea, nausea or vomiting Exam Narrative Exam Narrative: General: Slow speech and monotonous tone, he is in no acute distress and is alert and oriented at to person and place. HEENT: Normocephalic, eyes with pupils equal and reactive light symmetrically, extraocular movement intact and sclera anicteric. Oropharynx with dry mucosa. Neck: Supple without JVD. Lungs: Fair aeration with bronchovesicular breath sounds diffusely, no focalizing rales or rhonchi. No expiratory wheeze with increased expiratory phase. Heart: Regular rate and rhythm with no murmurs or gallops Abdomen: Soft nontender to palpation with no palpable hepatomegaly. Bowel sounds positive in all quadrants. Genitalia/rectal: Exam deferred. Patient does have indwelling Fitzpatrick catheter draining clear urine Extremities: Without clubbing, cyanosis or pitting edema but positive nonpitting edema aspect of the right leg with decreased movement. Fair capillary refill. Skin: Pale, warm and dry Neuro: Cranial nerves II through XII gross intact, right upper extremity is flaccid without movement and right lower extremity has 3 out of 5 strength being up to move against gravity and slight resistance. No tremor. Speech is slow. Psych: Flat affect with depressed mood. No abnormal thought processes. Remote memory intact with recent memory not intact. Objective Last Vital Signs Temp 37.4 C 03/29/23 16:01 Pulse 108 H 03/29/23 16:01 Resp 17 03/29/23 05:20 BP 155/83 H 03/29/23 16:01 Pulse Ox 93 03/29/23 16:01 Laboratory Results - last 24 hr 03/28/23 03/28/23 03/29/23 17:47 18:26 07:55 WBC RBC Hgb Hct MCV MCH MCHC RDW Plt Count MPV Sodium 142 Potassium 4.3 Chloride 105 Carbon Dioxide 29.6 Anion Gap 7.4 BUN 18 Creatinine 1.2 Est GFR (CKD-EPI 2020) 61.13 Glucose 98 Calcium 9.0 Magnesium 2.0 Total Bilirubin 0.4 AST 17 ALT 21 Alkaline Phosphatase 132 H Total Protein 7.3 Albumin 3.2 L TSH 1.18 Urine Color Yellow Urine Clarity Sl Cloudy Urine pH 5.5 Ur Specific [place] 1.010 Urine Protein 30 H Urine Ketones Negative Urine Blood Small H Urine Nitrite Negative Urine Bilirubin Negative Urine Urobilinogen 0.2 Ur Leukocyte Esterase Large H Urine RBC 3-5 H Urine WBC >50 H Ur Epithelial Cells Rare Urine Crystals Negative Urine Bacteria Few Urine Casts Negative Urine Mucus Negative Urine Other Few Yeast Ur Culture Indicated? Yes Urine Glucose Negative 03/29/23 07:55 WBC 10.49 RBC 3.64 L Hgb 11.9 L Hct 35.4 L MCV 97 H MCH 32.7 MCHC 33.6 RDW 13.9 Plt Count 204 MPV 8.9 Sodium Potassium Chloride Carbon Dioxide Anion Gap BUN Creatinine Est GFR (CKD-EPI 2020) Glucose Calcium Magnesium Total Bilirubin AST ALT Alkaline Phosphatase Total Protein Albumin TSH Urine Color Urine Clarity Urine pH Ur Specific [place] Urine Protein Urine Ketones Urine Blood Urine Nitrite Urine Bilirubin Urine Urobilinogen Ur Leukocyte Esterase Urine RBC Urine WBC Ur Epithelial Cells Urine Crystals Urine Bacteria Urine Casts Urine Mucus Urine Other Ur Culture Indicated? Urine Glucose Time Spent with Patient Time Spent with Patient: 25-34 minutes Time was spent: preparing to see the patient(eg.review tests), ordering medications,tests, procedures, referring, communicating with other health progressive care nurse, indepentently interpreting results, counseling the patient and care coordination
[2023-03-29] MEDS: Atorvastatin 40 MG TAB 80 MG PO (19:48)
[2023-03-29] MEDS: Melatonin 3 MG TAB 6 MG PO (21:07)
[2023-03-29] MEDS: clonazePAM 1 MG TAB PO (21:07)
[2023-03-30] VITALS (9 sets, daily range): BP systolic 100–151; BP diastolic 60–94; PULSE 82–115; RESP 16–24; TEMP 36.6–37.6; O2SAT 91–95
--- NOTE | 2023-03-30 | DI.RAD_ITS ---
Exam(s) XR HIP PELVIS ADULT BL EXAM: XR HIP PELVIS ADULT BL CLINICAL HISTORY: Fall. TECHNIQUE: 2D digital imaging was performed. Three views. COMPARISON: No exams were available for comparison FINDINGS: BONES: No acute fracture is present. No bony destructive lesion is seen. JOINTS: No dislocation present. SOFT TISSUE: Surgical clips and vascular calcifications. Bladder catheter. IMPRESSION: No acute abnormality. DATA REPOSITORY: RADIATION DOSE DELIVERED:
[2023-03-30] MEDS: Normal Saline 1,000 ML 100 ML IV (04:10)
[2023-03-30 07:40] LABS: Abs Immature Grans 0.08 10^3/uL (0.0-0.06); Absolute Basophil Count 0.03 10^3/uL (0.0-0.2); Absolute Eosinophil Count 0.19 10^3/uL (0.0-0.7); Absolute Lymphocyte Count 0.86 10^3/uL (1.2-3.4); Absolute Monocyte Count 0.78 10^3/uL (0.1-0.8); Absolute Neutrophil Count 8.09 10^3/uL (1.2-6.7); Basophils % 0.3; Eosinophils % 1.9; HGB 10.8 g/dL (13.5-17.5); Immature Grans % 0.8; Lymphocytes % 8.6; MCH 32.5 pg (27.0-33.0); MCHC 33.8 % (32.0-36.0); MCV 96 fL (80-95); MPV 9.5 fL (8.0-11.0); Monocytes % 7.8; Neutrophils % 80.6; Platelet Count 189 10^3/uL (130-400); RBC 3.32 10^6/uL (4.36-5.78); RDW 13.9 % (11.8-14.1); RDW-SD 49.1 fL; WBC 10.03 10^3/uL (4.4-10.8)
[2023-03-30 07:54] LABS: Anion Gap 8.3 mmol/L (3-11); BUN 16 mg/dL (7-18); CO2 26.7 mmol/L (21.0-32.0); Calcium 8.7 mg/dL (8.5-10.1); Chloride 106 mmol/L (98-107); Estimated GFR 76.08 (mL/min/1.73m2); Glucose 107 mg/dL (74-106); Magnesium 1.9 mg/dL (1.8-2.4); Potassium 3.7 mmol/L (3.5-5.1); Sodium 141 mmol/L (136-145)
[2023-03-30] MEDS: Pantoprazole 40 MG TABCR PO (08:39)
[2023-03-30] MEDS: QUEtiapine 25 MG TAB PO ×3 (08:39→21:09)
[2023-03-30] MEDS: Cholecalciferol (Vitamin D3) 1,000 UNIT TAB 1000 UNITS PO (08:40)
[2023-03-30] MEDS: Gabapentin 300 MG CAP PO ×2 (08:40→21:09)
[2023-03-30] MEDS: Memantine 5 MG TAB PO (08:40)
[2023-03-30] MEDS: Acetaminophen 325 MG TAB PO ×2 (08:40→17:46)
[2023-03-30] MEDS: Potassium Chloride 20 MEQ TABCR PO (08:40)
--- NOTE | 2023-03-30 12:35 | W.PM.PROGNOT ---
Date of Service Date of service: 03/30/23 Time of Service: 12:35 Assessment and Plan Assessment and plan (1) Altered mental status: Status: Acute Assessment and plan: lives with his daughter Baseline dementia which is advanced and status post left CVA with extension. Head CT neg (2) Acute UTI (urinary tract infection): Status: Acute Assessment and plan: With chronic indwelling Fitzpatrick catheter, changed in ED, discontinue IV Rocephin - pseudomonas per cx - start Cefepime 2 gm q8h (3) Indwelling Fitzpatrick catheter present: Status: Chronic Assessment and plan: Changed in the ED now with clear urine draining. (4) CVA (cerebral vascular accident): Status: Chronic Assessment and plan: Left lacunar infarct subacute - weakness chronically. VTE prophylaxis is contraindicated. Hold ASA Qualifiers: CVA mechanism: occlusion Precerebral and cerebral artery: middle cerebral artery Laterality of affected vessel: left Qualified Code(s): I63.512 - Cerebral infarction due to unspecified occlusion or stenosis of left middle cerebral artery (5) Dementia with behavioral disturbance: Status: Chronic Assessment and plan: Recently initiated on therapy with progressive disease. Patient is a DNR/DNI. Subjective Subjective Patient reports: no new complaints, pain is less, bowel movement and afebrile; denies diarrhea, nausea or vomiting Interval history since last seen: Salas is awake and alert, he is up out of bed with PT and walker, stooped over and looking at the floor. Exam Narrative Exam Narrative: General: Slow speech and monotonous tone, he is in no acute distress and is alert and oriented at to person and place. HEENT: Normocephalic, eyes with pupils equal and reactive light symmetrically, extraocular movement intact and sclera anicteric. Oropharynx with dry mucosa. Neck: Supple without JVD. Lungs: Fair aeration, no focalizing rales or rhonchi. No expiratory wheeze with increased expiratory phase. Heart: Regular rate and rhythm with no murmurs or gallops Abdomen: Soft nontender to palpation with no palpable hepatomegaly. Bowel sounds positive in all quadrants. Genitalia/rectal: Exam deferred. Patient does have indwelling Fitzpatrick catheter draining clear urine Extremities: Without clubbing, cyanosis or pitting edema but positive nonpitting edema aspect of the right leg with decreased movement. Fair capillary refill. Skin: Pale, warm and dry Neuro: Cranial nerves II through XII gross intact, right upper extremity is flaccid without movement and right lower extremity has 3 out of 5 strength being up to move against gravity and slight resistance. No tremor. Speech is slow. Psych: Flat affect with depressed mood. No abnormal thought processes. Remote memory intact with recent memory not intact. Objective Last Vital Signs Temp 36.7 C 03/30/23 11:22 Pulse 85 03/30/23 11:22 Resp 18 03/30/23 11:22 BP 123/78 03/30/23 11:22 Pulse Ox 93 03/30/23 11:22 Laboratory Results - last 24 hr 03/30/23 03/30/23 06:35 06:35 WBC 10.03 RBC 3.32 L Hgb 10.8 L Hct 32.0 L MCV 96 H MCH 32.5 MCHC 33.8 RDW 13.9 Plt Count 189 MPV 9.5 Immature Gran % 0.8 Neutrophils % 80.6 Lymphocytes % 8.6 Monocytes % 7.8 Eosinophils % 1.9 Basophils % 0.3 Nucleated RBC % 0.0 Absolute Neutrophils 8.09 H Absolute Lymphocytes 0.86 L Absolute Monocytes 0.78 Absolute Eosinophils 0.19 Absolute Basophils 0.03 Sodium 141 Potassium 3.7 Chloride 106 Carbon Dioxide 26.7 Anion Gap 8.3 BUN 16 Creatinine 1.0 Est GFR (CKD-EPI 2020) 76.08 Glucose 107 H Calcium 8.7 Magnesium 1.9 Time Spent with Patient Time Spent with Patient: 35-49 minutes Time was spent: preparing to see the patient(eg.review tests), ordering medications,tests, procedures, referring, communicating with other health child day care provider, indepentently interpreting results, counseling the patient and care coordination
--- NOTE | 2023-03-30 13:16 | DI.VRAD_ITS ---
PROCEDURE INFORMATION: Exam: XR Right Hip Exam date and time: 03/30/2023 12:55 PM Age: 82 years old Clinical indication: Injury or trauma; Fall; Blunt trauma (contusions or hematomas); Bilateral; Pelvic region TECHNIQUE: Imaging protocol: Radiologic exam of the right hip. Views: 2 or 3 views hip with pelvis when performed. COMPARISON: CT ABDOMEN PELVIS W 05/20/2020 10:47 AM FINDINGS: Bones/joints: Degenerative changes in both hips and sacroiliac joints. There is no evidence of acute fracture.There is no evidence of malalignment or dislocation. Degenerative changes in the lumbar spine Soft tissues: Unremarkable. IMPRESSION: There is no evidence of acute fracture.There is no evidence of malalignment or dislocation. Dictated and Authenticated by: Laura Whitaker MD. Ordering:KALPESH Mijares MD
--- NOTE | 2023-03-30 13:33 | PT.INTREAT ---
Date of service: 03/30/23 Time of Service: 10:25 PT Notes Visit Reasons: AMS, UTI, Right VCA w/ Possible Hemorrhage Inpatient Physical Therapy Treatment Note [facility] Date: 03/30/2023 Precautions: High fall risk. Standard.? Chronic right-sided hemiparesis.? Impaired safety awareness. Subjective: Confused, but willing to take a walk with me. Wants to go home. Requested to go back to bed post ambulation. Tired and did not sleep well last night. Did indicate he does not want to fall again. Objective: General Observation: Resting in bed.? Bed alarms on.? Fitzpatrick catheter in place. Mental Status: Confused, but cooperative. Pain: No report throughout session Bed Mobility/Transfers: Supine to sit minimal assist, HOB at 30 degrees Sit to supine mod assist x 2 with head and feet Sit to stand minimal assist x 2 Stand to sit minimal assist x 2 Gait: Trialled use of hemiwalker on the L side for level surface ambulation of 25 ft + 25 ft requiring minimal assist of 2. Right arm in sling while ambulating.? Nurse Marisabel assisted for safety.? Unable to fully extend either knee at midstance.? No hip extension on either side.? Trunk flexion excessive.? Maximal verbal cues needed for safe gait pattern,? posture, and hemiwalker management. Balance: Static Sitting: Normal Dynamic Sitting: Normal Static Standing: Fair Dynamic Standing: Fair Ther Ex: While sitting on edge of bed was able to perform LAQs x 10 reps each, seated marching x 10 reps and ankle pumps x 10 reps each. Did require verbal and tactile cueing with each of these tasks. ASSESSMENT: Tolerated session well, but requires verbal and tactile cueing with mobility and with staying on tasks. Plan: Continue to work on transfers, ambulation and strengthening as able to tolerate, for improved ADL function. TREATMENT CODE/TIME: 91391 x 1/ 31928 x 1, 10:25-10:45 (30')
--- NOTE | 2023-03-30 17:30 | RT.EKG_ITS ---
APPROVED REPORT Exam: Resting ECG Reason for Exam: Chest pain Patient Location: I HR:90 bpm ECG Measurements Heart Rate 90 AXIS LA 147 P 69 QRSd 83 QRS -3 QT 356 T 66 QTc 436 Conclusion Sinus rhythm...normal P axis, V-rate 50- 99 Normal Electrocardiogram
[2023-03-30] MEDS: Normal Saline 500 ML 30 ML IV (18:16)
[2023-03-30] MEDS: Normal Saline Flush 10 ML SYR IVP (18:16)
[2023-03-30] MEDS: cefTRIAXone 1 GM/50 ML BAG IVPB (18:16)
[2023-03-30 19:34] LABS: Troponin I < 50 ng/L (<or=60)
[2023-03-30] MEDS: Melatonin 3 MG TAB 6 MG PO (21:08)
[2023-03-30] MEDS: Atorvastatin 40 MG TAB 80 MG PO (21:08)
[2023-03-30] MEDS: clonazePAM 1 MG TAB PO (21:09)
[2023-03-30] MEDS: CEFEPIME 2 GM in Normal Saline 100 ML IVPB (22:00)
[2023-03-31] VITALS (7 sets, daily range): BP systolic 100–126; BP diastolic 64–79; PULSE 74–94; RESP 14–19; TEMP 36.4–37.2; O2SAT 91–97
[2023-03-31] MEDS: CEFEPIME 2 GM in Normal Saline 100 ML IVPB ×2 (04:58→15:18)
[2023-03-31 07:06] LABS: Absolute Basophil Count 0.04 10^3/uL (0.0-0.2); Absolute Eosinophil Count 0.24 10^3/uL (0.0-0.7); Absolute Monocyte Count 0.84 10^3/uL (0.1-0.8); Basophils % 0.4; Eosinophils % 2.2; HCT 34.4 % (40.0-50.0); HGB 11.3 g/dL (13.5-17.5); Immature Grans % 0.9; Lymphocytes % 8.1; MCH 32.2 pg (27.0-33.0); MCHC 32.8 % (32.0-36.0); MCV 98 fL (80-95); Monocytes % 7.6; Neutrophils % 80.8; Platelet Count 178 10^3/uL (130-400); RBC 3.51 10^6/uL (4.36-5.78); RDW-SD 50.4 fL; WBC 11.08 10^3/uL (4.4-10.8)
[2023-03-31 07:10] LABS: Absolute Neutrophil Count 8.95 10^3/uL (1.2-6.7)
[2023-03-31 07:28] LABS: Anion Gap 8.9 mmol/L (3-11); BUN 17 mg/dL (7-18); CO2 28.1 mmol/L (21.0-32.0); CREATININE 1.1 mg/dL (0.70-1.30); Calcium 9.1 mg/dL (8.5-10.1); Chloride 104 mmol/L (98-107); Estimated GFR 67.86 (mL/min/1.73m2); Glucose 115 mg/dL (74-106); Sodium 141 mmol/L (136-145)
[2023-03-31 07:32] LABS: Troponin I < 50 ng/L (<or=60)
[2023-03-31] MEDS: Pantoprazole 40 MG TABCR PO (09:16)
[2023-03-31] MEDS: Potassium Chloride 20 MEQ TABCR PO (09:16)
[2023-03-31] MEDS: Cholecalciferol (Vitamin D3) 1,000 UNIT TAB 1000 UNITS PO (09:17)
[2023-03-31] MEDS: Gabapentin 300 MG CAP PO ×2 (09:17→19:27)
[2023-03-31] MEDS: QUEtiapine 25 MG TAB PO ×3 (09:17→19:26)
[2023-03-31] MEDS: Memantine 5 MG TAB PO (09:17)
[2023-03-31] MEDS: Acetaminophen 325 MG TAB PO ×2 (09:17→16:27)
--- NOTE | 2023-03-31 12:01 | NUR.NOTE ---
Nursing Note: Pt weaker today as reported by daughter this morning at bedside. Assisted to chair w/ physical therapy who reports that pt was ambulating yesterday and the day before, noting that in each of the recent three days, pt has ambulated less than the day before. Pt is visibly weak with WBC trending up. Care management notified.
--- NOTE | 2023-03-31 13:24 | PT.INTREAT ---
Date of service: 03/31/23 Time of Service: 11:30 PT Notes Visit Reasons: AMS, UTI, Right VCA w/ Possible Hemorrhage Inpatient Physical Therapy Treatment Note [facility] Date: 03/31/2023 Precautions: High fall risk. Standard.? Chronic right-sided hemiparesis.? Impaired safety awareness. Subjective: Continues to complain of being tired. 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 Daughter in-law, Yeny, was in room with patient for part of session and indicated that José Antonio was having trouble with swallowing breakfast earlier this morning. Expressed concern with having someone with him for dinner, indicated she is staying with him for lunch. Nurse Tirado was made aware of this conversation and I later spoke with hospitalist, Maryana Alejo, about this and decision to have patient transfer to chair only due to difficulty with sit to stand transfers today as well. Objective: Pain: No report throughout session Bed Mobility/Transfers: Supine to sit mod assist, HOB at 30 degrees Sit to stand with mod assist x 2 when first working on standing, but had patient perform 3 times and only required min assist by last attempt. Stand to sit minimal assist x 2 Gait: Use of hemiwalker on the L side for ambulation bed to recliner, requiring CGA of 2. Right arm in sling while ambulating.? Nurse Celestino assisted for safety.? Unable to fully extend either knee at midstance.? No hip extension on either side.? Trunk flexion excessive.? Maximal verbal cues needed for safe gait pattern,? posture, and hemiwalker management. Had planned to have patient ambulate out into hallway but due to difficulty with standing initially agreed that bed to chair maybe appropriate today. Ther Ex: Once up in chair patient was able to perform LAQs, seated hip abd/add, seated marching, heel raises off foot plate with verbal / tactile cueing. Left in recliner chair, with alarm on, at conclusion of session.?Daughter in-law also with patient.? Fitzpatrick catheter in place. Right arm on pillow, sling removed. Patient was awaiting lunch. ASSESSMENT: Tolerated session fair, difficult start to session but seemed to be more alert once up in recliner. Plan: Continue to work on transfers, ambulation and strengthening as able to tolerate, for improved ADL function. TREATMENT CODE/TIME: 75475 x 1/ 16539 x 1, 11:30 to 11:55 (25')
--- NOTE | 2023-03-31 13:49 | PGE_ITS ---
Date of Service Date of service: 03/31/23 Time of Service: 13:49 Assessment and Plan Assessment and plan (1) Altered mental status: Status: Acute Assessment and plan: lives with his daughter Baseline dementia which is advanced and status post left CVA with extension. Head CT neg Improving, at baseline now, awaiting placement (2) Acute UTI (urinary tract infection): Status: Acute Assessment and plan: With chronic indwelling Fitzpatrick catheter, changed in ED, Continue Cefepime 2 gm q8h (3) Indwelling Fitzpatrick catheter present: Status: Chronic Assessment and plan: Changed in the ED now with clear urine draining. (4) CVA (cerebral vascular accident): Status: Chronic Assessment and plan: Left lacunar infarct subacute - weakness chronically. VTE prophylaxis is contraindicated. Hold ASA Qualifiers: CVA mechanism: occlusion Laterality of affected vessel: left Precerebral and cerebral artery: middle cerebral artery Qualified Code(s): I63.512 - Cerebral infarction due to unspecified occlusion or stenosis of left middle cerebral artery (5) Dementia with behavioral disturbance: Status: Chronic Assessment and plan: Recently initiated on therapy with progressive disease. Patient is a DNR/DNI. No behavioral disturbance noted (6) Swallowing difficulty: Status: Acute Assessment and plan: Trouble swallowing pills today, family concerned he is also having trouble with food, although nurse or I did not observe that. Speech consult placed for swallowing eval Subjective Subjective Patient reports: feels better, tolerating a regular diet and afebrile; denies flatus, diarrhea or vomiting Exam Narrative Exam Narrative: General: Slow speech and monotonous tone, he is in no acute distress and is alert and oriented at to person and place. HEENT: Normocephalic, eyes with pupils equal and reactive light symmetrically, extraocular movement intact and sclera anicteric. Oropharynx with dry mucosa. Neck: Supple without JVD. Lungs: Fair aeration, no focalizing rales or rhonchi. No expiratory wheeze with increased expiratory phase. Heart: Regular rate and rhythm with no murmurs or gallops Abdomen: Soft nontender to palpation with no palpable hepatomegaly. Bowel sounds positive in all quadrants. Genitalia/rectal: Exam deferred. Patient does have indwelling Fitzpatrick catheter draining clear urine Extremities: Without clubbing, cyanosis or pitting edema but positive nonpitting edema aspect of the right leg with decreased movement. Fair capillary refill. Skin: Pale, warm and dry Neuro: Cranial nerves II through XII gross intact, right upper extremity is flaccid without movement and right lower extremity has 3 out of 5 strength being up to move against gravity and slight resistance. No tremor. Speech is slow. Psych: Flat affect with depressed mood. No abnormal thought processes. Remote memory intact with recent memory not intact. Objective Last Vital Signs Temp 37.2 C 03/31/23 10:42 Pulse 94 H 03/31/23 10:42 Resp 19 03/31/23 10:42 BP 101/66 03/31/23 10:42 Pulse Ox 91 L 03/31/23 10:42 Laboratory Results - last 24 hr 03/30/23 03/31/23 03/31/23 18:40 06: 06:23 WBC 11.08 H RBC 3.51 L Hgb 11.3 L Hct 34.4 L MCV 98 H MCH 32.2 MCHC 32.8 RDW 14.0 Plt Count 178 MPV 9.0 Immature Gran % 0.9 Neutrophils % 80.8 Lymphocytes % 8.1 Monocytes % 7.6 Eosinophils % 2.2 Basophils % 0.4 Nucleated RBC % 0.0 Absolute Neutrophils 8.95 H Absolute Lymphocytes 0.90 L Absolute Monocytes 0.84 H Absolute Eosinophils 0.24 Absolute Basophils 0.04 Sodium 141 Potassium 4.0 Chloride 104 Carbon Dioxide 28.1 Anion Gap 8.9 BUN 17 Creatinine 1.1 Est GFR (CKD-EPI 2020) 67.86 Glucose 115 H Calcium 9.1 Magnesium 2.0 Troponin I < 50 03/31/23 06:23 WBC RBC Hgb Hct MCV MCH MCHC RDW Plt Count MPV Immature Gran % Neutrophils % Lymphocytes % Monocytes % Eosinophils % Basophils % Nucleated RBC % Absolute Neutrophils Absolute Lymphocytes Absolute Monocytes Absolute Eosinophils Absolute Basophils Sodium Potassium Chloride Carbon Dioxide Anion Gap BUN Creatinine Est GFR (CKD-EPI 2020) Glucose Calcium Magnesium Troponin I < 50 Time Spent with Patient Time Spent with Patient: 35-49 minutes Time was spent: preparing to see the patient(eg.review tests), ordering medications,tests, procedures, referring, communicating with other health home health care respiratory therapist, indepentently interpreting results, counseling the patient and care coordination
--- NOTE | 2023-03-31 14:58 | NUR.NOTE ---
Nursing Note: Family concerned about pt's safe swallow. Provider notified. Speech therapy (w/ swallow eval) to be ordered. Provider aware of family concerns.
[2023-03-31] MEDS: Ketorolac 30 MG/ML VIAL IVP (17:29)
[2023-03-31] MEDS: Lidocaine 5% Patch 1 PATCH TP (17:29)
[2023-03-31] MEDS: Atorvastatin 40 MG TAB 80 MG PO (19:26)
[2023-03-31] MEDS: Melatonin 3 MG TAB 6 MG PO (20:49)
[2023-03-31] MEDS: clonazePAM 1 MG TAB PO (20:49)
[2023-03-31] MEDS: Ketorolac 15 MG/ML VIAL IVP (21:41)
[2023-03-31] MEDS: Normal Saline Flush 10 ML SYR IVP (21:41)
[2023-04-01] VITALS (9 sets, daily range): BP systolic 112–148; BP diastolic 68–81; PULSE 57–88; RESP 16–18; TEMP 36–36.8; O2SAT 91–94
--- NOTE | 2023-04-01 | DI.CT_ITS ---
Exam(s) CT HEAD WO EXAM: CT HEAD WO CLINICAL HISTORY: headache. TECHNIQUE: Imaging Protocol: Axial computed tomography images with coronal and sagittal reformatted images were created and reviewed COMPARISON: CT CT HEAD CERVICAL SPINE WO from 03/29/2023 FINDINGS: Ventricles and Extra axial spaces: Normal in size and morphology for the patient's age. Hemorrhage: None. Cerebral parenchyma: Atrophy. Old left frontal and parietal infarcts. No change in appearance of br ain from prior exams. Midline shift: None. Brainstem/Cerebellum: Normal. Calvarium: Normal. Visualized Paranasal sinuses/Mastoids: Mild mucosal thickening right maxillary sinus. Soft Tissues: Unremarkable. IMPRESSION: No acute intracranial process. RADIATION DOSE DELIVERED: 766.27mGy.cm Total DLP DATA REPOSITORY: All CT scans at this facility are submitted to the National Radiology Data Registry (NRDR) Dose Index Registry (DIR) with the [employer] (ACR). RADIATION OPTIMIZATION: All CT scans at this facility use at least one of these dose optimization te chniques: automated exposure control; mA and/or kV adjustment per patient size (includes targeted exa ms where dose is matched to clinical indication); or iterative reconstruction.
[2023-04-01] MEDS: CEFEPIME 2 GM in Normal Saline 100 ML IVPB ×2 (03:52→16:14)
[2023-04-01] MEDS: Normal Saline Flush 10 ML SYR IVP ×2 (03:59→08:28)
[2023-04-01] MEDS: Ketorolac 15 MG/ML VIAL IVP ×4 (03:59→21:53)
[2023-04-01 07:00] LABS: Abs Immature Grans 0.08 10^3/uL (0.0-0.06); Absolute Basophil Count 0.03 10^3/uL (0.0-0.2); Absolute Eosinophil Count 0.29 10^3/uL (0.0-0.7); Absolute Lymphocyte Count 0.86 10^3/uL (1.2-3.4); Absolute Monocyte Count 0.66 10^3/uL (0.1-0.8); Basophils % 0.3; Eosinophils % 3.3; HCT 30.2 % (40.0-50.0); HGB 9.9 g/dL (13.5-17.5); Immature Grans % 0.9; Lymphocytes % 9.6; MCH 32.2 pg (27.0-33.0); MCHC 32.8 % (32.0-36.0); MCV 98 fL (80-95); MPV 9.3 fL (8.0-11.0); Monocytes % 7.4; Neutrophils % 78.5; Platelet Count 131 10^3/uL (130-400); RBC 3.07 10^6/uL (4.36-5.78); RDW 13.8 % (11.8-14.1); RDW-SD 50.1 fL; WBC 8.92 10^3/uL (4.4-10.8)
[2023-04-01 07:15] LABS: Anion Gap 8.2 mmol/L (3-11); BUN 24 mg/dL (7-18); CO2 27.8 mmol/L (21.0-32.0); CREATININE 1.6 mg/dL (0.70-1.30); Calcium 8.5 mg/dL (8.5-10.1); Chloride 101 mmol/L (98-107); Estimated GFR 43.29 (mL/min/1.73m2); Glucose 105 mg/dL (74-106); Magnesium 1.9 mg/dL (1.8-2.4); Potassium 4.2 mmol/L (3.5-5.1); Sodium 137 mmol/L (136-145)
[2023-04-01] MEDS: Gabapentin 300 MG CAP PO ×2 (08:26→19:43)
[2023-04-01] MEDS: Acetaminophen 325 MG TAB PO ×2 (08:26→17:39)
[2023-04-01] MEDS: Cholecalciferol (Vitamin D3) 1,000 UNIT TAB 1000 UNITS PO (08:26)
[2023-04-01] MEDS: QUEtiapine 25 MG TAB PO ×3 (08:27→19:43)
[2023-04-01] MEDS: Pantoprazole 40 MG TABCR PO (08:27)
[2023-04-01] MEDS: Memantine 5 MG TAB PO (08:27)
[2023-04-01] MEDS: Potassium Chloride 20 MEQ TABCR PO (08:28)
[2023-04-01] MEDS: LORazepam 1 MG TAB PO ×2 (09:34→19:48)
--- NOTE | 2023-04-01 11:24 | PT.INTREAT ---
Date of service: 04/01/23 Time of Service: 10:45 PT Notes Visit Reasons: AMS, UTI, Right VCA w/ Possible Hemorrhage Inpatient Physical Therapy Treatment Note [facility] Date: 04/01/23 PRECAUTIONS: Fall, standard, activity as tolerated SUBJECTIVE: patient supine in bed, agreeable to therapy, reports that his family told him he needs to stay here and he wants to go home instead. OBJECTIVE: PAIN: none reported BED MOBILITY/TRANSFERS Rolling L/R: standby Supine-sit: min assist Sit-supine: did not assess Sit-stand: contact guard Stand-sit: contact guard Bed-Chair: contact guard Chair-bed: contact guard GAIT Assistive Device: michelle walker, gait belt Weight bearing: full Assist: contact guard Distance: 4' Deviation: extremely short step length, reduced step height, wide base of support. VITALS: monitored via telemetry ASSESSMENT: Patient wonders if we can do this just the two of us as he has required assist of 2-3 for ambulation. Patient appears steady during ambulation. Ends treatment session sitting up in the recliner with the [place] alarm on. PLAN: Continue strengthening per plan of care, attempt further ambulation this afternoon. TREATMENT CODE/TIME: 36800 Gait 16 minutes beginning at 10:45
--- NOTE | 2023-04-01 11:45 | PT.INNT ---
Date of service: 04/01/23 Time of Service: 11:34 PT Notes Visit Reasons: AMS, UTI, Right VCA w/ Possible Hemorrhage Patient refused therapy, does not want to be too tired when he transfers today to [facility].
--- NOTE | 2023-04-01 14:28 | PHACLINREV_ITS ---
Pharmacy Admission Review Admission Clinical Review Admission Pharmacy Review: (Updated 03/31/23 @ 17:44 by Maryana Marrero NP) Swallowing difficulty (Acute) Acute UTI (Acute) Chronic indwelling Fitzpatrick catheter (Acute) Altered mental status (Acute) Acute UTI (urinary tract infection) (Acute) shellfish derived Allergy (Intermediate, Verified 03/28/23 16:39) severe vomiting oxycodone HCl [From Percocet] Adverse Reaction (Verified 03/28/23 16:39) wild dreams trazodone Adverse Reaction (Verified 03/28/23 16:39) unknown Resuscitation Status DNR/DNI Height 5 ft 5 in Weight 62.9 kg Pharmacy Admission Review Renal Dosing Renal Dosing: BUN 24 mg/dL (7-18) H 04/01/23 06:01 Creatinine 1.6 mg/dL (0.70-1.30) H 04/01/23 06:01 Medications needing adjustments: Reviewed (crcl = 32) List of meds needing interventions: cefepime adjusted to q12h by [facility], other meds ok. monitor for addition of new meds that may need renal adjustment Anticoagulation Anticoagulation: Hgb 9.9 g/dL (13.5-17.5) L 04/01/23 06:01 Hct 30.2 % (40.0-50.0) L 04/01/23 06:01 Plt Count 131 10^3/uL (130-400) 04/01/23 06:01 Creatinine 1.6 mg/dL (0.70-1.30) H 04/01/23 06:01 DVT Prophylaxis: Reviewed (SCD's - chemical prophylaxis contraindicated (CVA, ?hemorrhage)) Therapeutic Anticoagulation: N/A Opiate Usage Evaluate Pain Scale/Pains Meds: N/A (not on opiates) Relevant Labs Relevant Labs: Sodium 137 mmol/L (136-145) 04/01/23 06:01 Potassium 4.2 mmol/L (3.5-5.1) 04/01/23 06:01 Chloride 101 mmol/L (98-107) 04/01/23 06:01 Magnesium 1.9 mg/dL (1.8-2.4) 04/01/23 06:01 Electrolytes, C-Reactive P, ESR: Reviewed DM Control Insulin Dosing: N/A Cardiac Review Cardiac Review: Troponin I < 50 ng/L (<or=60) 03/31/23 06:23 EF%, JOY's, B-Blockers, Diuretics: Reviewed (not on any antihypertensives or diuretics) QTc Review If Elevated: N/A (QTc = 436 03/30/23) IV to PO Switch IV Medications: Reviewed (continue IV abx, ketorolac for now. may have swallowing difficulty - speech consult pending) Home Meds Home Med List reviewed: Reviewed Current Meds Current Medication Order Review: Reviewed Pharmacy Antibiotic Review Pharmacy Antibiotic Activity: C/S review Comments: UTI: cefepime 2gm q12h (renally dosed) for pseudomonas, cultures also positive for enterococcus faecalis - spoke with hospitalist, ordered fosfomycin 3 g today and repeat in 3 days
--- NOTE | 2023-04-01 15:26 | CMPROGNOTE_ITS ---
Date of service: 04/01/23 Time of Service: 15:26 Care Management Progress Note Progress Note Text Progress Note Text: S/O: CM met with José Antonio early this morning. He is awake and engages in conversation. He shares with CM that he doesn't have any [place] eggs left and wanted to talk to someone about living or dying. After a short discussion, José Antonio agrees to a Palliative Care Consult to talk about his quality of life and goals of care. José Antonio does not feel a [place] would be helpful at this time. CM sent SNF referral's at patients request. His HIPAA is not up to date in his EMR, CM will discuss with José Antonio and update at his request. CM will continue to follow . A: 82 year old male admitted to [facility] on 03/28/23 for AMS and UTI P: José Antonio will likely transfer to a SNF for rehab followed by [employer] machine tender care. The family will provide CM with their preferred facilities on Saturday and referrals will be sent. CM will follow and continue to assess for discharge planning concerns.
--- NOTE | 2023-04-01 15:49 | W.PM.PROGNOT ---
Date of Service Date of service: 04/01/23 Time of Service: 15:49 Assessment and Plan Assessment and plan (1) Altered mental status: Status: Acute Assessment and plan: lives with his daughter, she feels she can't take care of him anymore Baseline dementia which is advanced and status post left CVA with extension. Head CT neg - suspect AMS due to UTI Improving, at baseline now, awaiting placement (2) UTI (urinary tract infection) due to urinary indwelling catheter: Status: Acute Assessment and plan: With chronic indwelling Fitzpatrick catheter, changed in ED, Continue Cefepime 2 gm q8h for pseudomonas aeruginosa Added fosfomycin x 2 for enterococcu faecalis (3) Acute UTI (urinary tract infection): Status: Acute (4) CVA (cerebral vascular accident): Status: Chronic Assessment and plan: Left lacunar infarct subacute - weakness chronically. VTE prophylaxis is contraindicated. Hold ASA Qualifiers: CVA mechanism: occlusion Laterality of affected vessel: left Precerebral and cerebral artery: middle cerebral artery Qualified Code(s): I63.512 - Cerebral infarction due to unspecified occlusion or stenosis of left middle cerebral artery (5) Dementia with behavioral disturbance: Status: Chronic Assessment and plan: Recently initiated on therapy with progressive disease. Patient is a DNR/DNI. No behavioral disturbance noted (6) Swallowing difficulty: Status: Acute Assessment and plan: Trouble swallowing pills today, family concerned he is also having trouble with food, although nurse or I did not observe that. Speech consult placed for swallowing eval Subjective Subjective Patient reports: no new complaints, tolerating a regular diet and afebrile; denies diarrhea or vomiting Interval history since last seen: Salas states he is feeling week today and feels like he is out of [place] eggs. He feels like he wants to give up as there is nothing much to do anymore. Lona's son called today and said his sister can't continue to care for the patient, it's too much for her. Exam Narrative Exam Narrative: General: Slow speech and monotonous tone, he is in no acute distress and is alert and oriented at to person and place. HEENT: Normocephalic, eyes with pupils equal and reactive light symmetrically, extraocular movement intact and sclera anicteric. Oropharynx with dry mucosa. Neck: Supple without JVD. Lungs: Fair aeration, no focalizing rales or rhonchi. No expiratory wheeze with increased expiratory phase. Heart: Regular rate and rhythm with no murmurs or gallops Abdomen: Soft nontender to palpation with no palpable hepatomegaly. Bowel sounds positive in all quadrants. Genitalia/rectal: Exam deferred. Patient does have indwelling Fitzpatrick catheter draining clear urine Extremities: Without clubbing, cyanosis or pitting edema but positive nonpitting edema aspect of the right leg with decreased movement. Fair capillary refill. Skin: Pale, warm and dry Neuro: Cranial nerves II through XII gross intact, right upper extremity is flaccid without movement and right lower extremity has 3 out of 5 strength being up to move against gravity and slight resistance. No tremor. Speech is slow. Psych: Flat affect with depressed mood. No abnormal thought processes. Remote memory intact with recent memory not intact. Objective Last Vital Signs Temp 36.7 C 04/01/23 15:36 Pulse 78 04/01/23 15:36 Resp 18 04/01/23 15:36 BP 130/77 04/01/23 15:36 Pulse Ox 92 04/01/23 15:36 Laboratory Results - last 24 hr 04/01/23 04/01/23 06:01 06:01 WBC 8.92 RBC 3.07 L Hgb 9.9 L Hct 30.2 L MCV 98 H MCH 32.2 MCHC 32.8 RDW 13.8 Plt Count 131 MPV 9.3 Immature Gran % 0.9 Neutrophils % 78.5 Lymphocytes % 9.6 Monocytes % 7.4 Eosinophils % 3.3 Basophils % 0.3 Nucleated RBC % 0.0 Absolute Neutrophils 7.00 H Absolute Lymphocytes 0.86 L Absolute Monocytes 0.66 Absolute Eosinophils 0.29 Absolute Basophils 0.03 Sodium 137 Potassium 4.2 Chloride 101 Carbon Dioxide 27.8 Anion Gap 8.2 BUN 24 H Creatinine 1.6 H Est GFR (CKD-EPI 2020) 43.29 Glucose 105 Calcium 8.5 Magnesium 1.9 Time Spent with Patient Time Spent with Patient: 25-34 minutes Time was spent: preparing to see the patient(eg.review tests), ordering medications,tests, procedures, referring, communicating with other health palliative care specialist, indepentently interpreting results, counseling the patient and care coordination
[2023-04-01] MEDS: Lidocaine 5% Patch 1 PATCH TP (17:05)
[2023-04-01] MEDS: Fosfomycin Tromethamine 3 GM PACKET PO (17:05)
[2023-04-01] MEDS: traMADol 50 MG TAB PO (18:28)
[2023-04-01] MEDS: Atorvastatin 40 MG TAB 80 MG PO (19:43)
--- NOTE | 2023-04-01 21:41 | DI.VRAD_ITS ---
PROCEDURE INFORMATION: Exam: CT Head Without Contrast Exam date and time: 04/01/2023 8:45 PM Age: 82 years old Clinical indication: Other: Headache TECHNIQUE: Imaging protocol: Computed tomography of the head without contrast. Radiation optimization: All CT scans at this facility use at least one of these dose optimization techniques: automated exposure control; mA and/or kV adjustment per patient size (includes targeted exams where dose is matched to clinical indication); or iterative reconstruction. COMPARISON: CT HEAD CERVICAL SPINE WO 03/29/2023 4:34 PM FINDINGS: Brain: Chronic left parietal and frontal infarction with faint calcifications/laminar necrosis No hemorrhage. Moderate white matter disease. No mass effect. Cerebral ventricles: No ventriculomegaly. Paranasal sinuses: Visualized sinuses are unremarkable. No fluid levels. Mastoid air cells: Visualized mastoid air cells are well aerated. Bones/joints: Unremarkable. No acute fracture. Soft tissues: Unremarkable. IMPRESSION: No acute intracranial abnormality. Chronic findings as noted grossly stable in appearance Dictated and Authenticated by: Alireza Hansen MD. Ordering:KALPESH Mijares MD
[2023-04-01] MEDS: clonazePAM 1 MG TAB PO (21:53)
[2023-04-01] MEDS: Melatonin 3 MG TAB 6 MG PO (21:53)
[2023-04-02] VITALS (11 sets, daily range): BP systolic 102–154; BP diastolic 68–88; PULSE 74–93; RESP 16–18; TEMP 36–36.9; O2SAT 91–95
[2023-04-02] MEDS: Ketorolac 15 MG/ML VIAL IVP ×2 (03:42→10:10)
[2023-04-02] MEDS: CEFEPIME 2 GM in Normal Saline 100 ML IVPB ×2 (03:43→16:48)
[2023-04-02 06:47] LABS: Abs Immature Grans 0.07 10^3/uL (0.0-0.06); Absolute Basophil Count 0.03 10^3/uL (0.0-0.2); Absolute Eosinophil Count 0.26 10^3/uL (0.0-0.7); Absolute Lymphocyte Count 0.67 10^3/uL (1.2-3.4); Absolute Monocyte Count 0.71 10^3/uL (0.1-0.8); Absolute Neutrophil Count 6.85 10^3/uL (1.2-6.7); Basophils % 0.3; HCT 29.5 % (40.0-50.0); HGB 9.7 g/dL (13.5-17.5); Immature Grans % 0.8; Lymphocytes % 7.8; MCH 31.7 pg (27.0-33.0); MCHC 32.9 % (32.0-36.0); MCV 96 fL (80-95); MPV 9.1 fL (8.0-11.0); Monocytes % 8.3; Neutrophils % 79.8; Platelet Count 138 10^3/uL (130-400); RBC 3.06 10^6/uL (4.36-5.78); RDW 13.4 % (11.8-14.1); RDW-SD 47.4 fL; WBC 8.59 10^3/uL (4.4-10.8)
[2023-04-02 06:58] LABS: Anion Gap 8.4 mmol/L (3-11); BUN 24 mg/dL (7-18); CO2 25.6 mmol/L (21.0-32.0); CREATININE 1.3 mg/dL (0.70-1.30); Calcium 8.4 mg/dL (8.5-10.1); Chloride 101 mmol/L (98-107); Estimated GFR 55.53 (mL/min/1.73m2); Glucose 95 mg/dL (74-106); Magnesium 1.9 mg/dL (1.8-2.4); Potassium 4.7 mmol/L (3.5-5.1); Sodium 135 mmol/L (136-145)
[2023-04-02] MEDS: Pantoprazole 40 MG TABCR PO (07:50)
[2023-04-02] MEDS: Cholecalciferol (Vitamin D3) 1,000 UNIT TAB 1000 UNITS PO (07:50)
[2023-04-02] MEDS: Memantine 5 MG TAB PO (07:50)
[2023-04-02] MEDS: Gabapentin 300 MG CAP PO ×2 (07:51→19:53)
[2023-04-02] MEDS: Acetaminophen 325 MG TAB PO ×2 (07:51→19:55)
[2023-04-02] MEDS: Potassium Chloride 20 MEQ TABCR PO (07:51)
[2023-04-02] MEDS: LORazepam 1 MG TAB PO ×2 (07:51→22:15)
[2023-04-02] MEDS: QUEtiapine 25 MG TAB PO ×3 (07:51→19:53)
--- NOTE | 2023-04-02 09:57 | PTTR_ITS ---
Date of service: 04/02/23 Time of Service: 09:32 PT Notes Visit Reasons: AMS, UTI, Right VCA w/ Possible Hemorrhage Inpatient Physical Therapy Treatment Note [facility] Date: 04/02/23 PRECAUTIONS: Fall, standard, activity as tolerated SUBJECTIVE: Patient sitting up in recliner, agreeable to therapy. Seems subdued today. OBJECTIVE: PAIN: none reported BED MOBILITY/TRANSFERS Sit-stand: min assist Stand-sit: mod assist THEREX: sit to stand x6, seated hip hikes x10 each side, long arc quads x10 each side. THERACT: Patient education re: sling, keeping wrist above elbow in order to prevent arm from sliding out of sling. Made appropriate adjustments to sling. ASSESSMENT: Patient reports dizziness on standing the first time, it resolves w ith continued standing and cues to breathe. Patient reports not feeling well, can't seem to get weight forward enough to balance, continued min assist to remain standing. Patient returned to recliner at end of session with POSY alarm on and legs elevated, call cook in reach. PLAN: Continue strengthening per plan of care until patient is cleared for discharge. TREATMENT CODE/TIME: 07392 Ther Act 10 minutes, 28808 Ther Ex 13 minutes beginning at 9:32
--- NOTE | 2023-04-02 10:22 | PDOC.CMPRO ---
Date of service: 04/02/23 Time of Service: 10:22 Care Management Progress Note Progress Note Text Progress Note Text: S/O: José Antonio was sitting in his recliner when CM met with him, visiting with his DIL Yeny. Per Yeny, José Antonio has declined significantly over the last few months. Palliative consult is planned for 1430, CM notified Addison (per Rossy, she is unavailable until Saturday.) SNF referral's are pending at [facility] and [facility]. Following STR, LTC will be needed per Addison. The family plans to self pay,and Addison is looking into residential care options. CM contacted the [facility] to see if they have a list of local residential providers in the area. CM will follow. ? A: 82 year old male admitted to [facility] on 03/28/23 for AMS and UTI P: José Antonio will likely transfer to a SNF for rehab followed by athletic gear custodian care at a residential penitentiary, of choice[facility] SNF referral's are pending at [facility] and [facility]. CM will follow and continue to assess for discharge planning concerns.
--- NOTE | 2023-04-02 11:41 | W.PALLCONSUL ---
Date of service: 04/02/23 Time of Service: 14:30 History of Present Illness Narrative: Checo Cornell is an 82-year-old gentleman with history of multiple CVA over the last 3 to 4 months requiring admission to various facilities this spring. He also has a history of multiple cancers (bladder, renal cell, prostate), chronic UTIs (previously self cath and now with with indwelling Fitzpatrick catheter since CVAs (, history of EtOH (in remission), CAD, hypertension, RLS, hyperlipidemia essential tremor. Most recently he admitted to [facility] with new CVA as well as acute UTI causing agitation and challenging behaviors. Previously diagnosed with frontal lobe CVA December 13, 2022 and another CVA January 24, 2023. Palliative care team is being asked to meet with the family to help with goals of care, reviewing advance directives, consideration of discharge planning options and additional level of support. Part of the meeting was spent at the patient's bedside. He would doze off to sleep. He was able to tell me that he is in the hospital. Cannot tell me the month. Recognized his sons. Seemed very tired and Falling asleep. Most of the history today was from the sons, who are his healthcare agent Prior to the first stroke, Mr. 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 Additionally he was able to do self-catheterization twice a day. His loss of abilities has been quite striking with a series of 3 strokes. Is only with this last stroke in the last week that he has become more confused. He has a dense right upper extremity hemiparesthesias and needs to use a hemiwalker. Family notes that he also seems sad and has expressed that this may be BV and of his life Of note, after the first stroke in December he was transferred to [facility] At [facility]. After discharge from rehab , he went to his stepdaughter's house for few days before getting sick again; daughter noted that he needed 24 care.. After second stroke, he again went to [facility] for subacute rehab; after that rehab discharge his family decided to bring him home for care support from private primary care md during the day, step?daughter Alyssa in the house 29/04, and sons coming on the weekends. This only last a week and a half and this last stroke and admission occurred. Family feels they do not have the capacity to care for him at home after above experience. They envisioned that he will be first admitted to subacute rehab and then a long-term care facility or community assisted Care Team: Primary Care physician: Jacquelin Whaley Neurology: He has not seen a neurologist. Social HX: Had been living alone in his home in [place] with his dog. 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 since 2019 ( on Hospice in 2019). 2 daughters, 4 sons Jose, Wilfrid, Randolph, Addison. -Enjoyed: puttering in yard, Smoking his pipe., being with family, working at his business. Used to read the paper prior to this admission at [facility]. - Impression of currents health status: N/A What bothers you the most: Nothing What worries you the most: I do not worry about things What is most important to him? Randolph says: I don not think he wants to live anymore. Function: Ambulation: Patient with right-sided hemiparesis (PT reports significantly hypotonic right upper extremity). Uses hemiwalker on left side, 1-2 person assist when ambulating. ADLs: Needs help with all ADLs. iADLs: Totally dependent Hearing: Slightly reduced Vision: Sons think is pretty good Cognition: Occasional mild confusion noted before for stroke. Quite confused since his last stroke Falls: Some Palliative Performance Scale % Ambulation Activity and Evidence of Disease Self Care Intake Level of Consciousness 100 Full Normal activity, no evidence of disease Full Normal Full 90 Full Normal activity, some evidence of disease Full Normal Full 80 Full Normal activity with effort, some evidence of disease Full Normal or reduced Full 70 Reduced Unable to do normal work, some evidence of disease Full Normal or reduced Full 60 Reduced Unable to do hobby or some housework, significant disease Occasional assist necessary Normal or reduced Full or confusion 50 Mainly sit/lie Unable to do any work, extensive disease Considerable assistance required Normal or reduced Full or confusion 40 Mainly in bed Unable to do any work, extensive disease Mainly assistance Normal or reduced Full, drowsy, or confusion 30 Totally bed bound Unable to do any work, extensive disease Total care Reduced Full, drowsy, or confusion 20 Totally bed bound Unable to do any work, extensive disease Total care Minimal sips Full, drowsy, or confusion 10 Totally bed bound Unable to do any work, extensive disease Total care Mouth care only Drowsy or coma 0 - - - - Patient Score: 50?60 Spiritual history: Lapsed Anabaptist, has not been to hinduism in many years. Son said he would want to get last rights and actually would welcome a visit from a carpenter repair currently. Palliative review of systems: Pain: Patient currently denies pain. Sons report he had a headache yesterday Dyspnea: Denies GI symptoms: Unable to answer Appetite: Unable to answer Depression: Son thinks he is depressed due to current debilitation. Anxiety: Not answered Emotional Distress: Spiritual/Existential Distress: Labs: Cr: Range 1.2?1.6, currently 1.3 Liver panel: Normal Albumin: 3.2 CBC: Hemoglobin 9.7(11.7 at admission) Advanced Care Planning: Advanced Directive: Sons report he has an advanced directive, not available at this time. Health Care Agent: Jose and Addison/Randolph are DPOA. COLST: Sons report he has wanted to be DNR/DNI for several years. No COLST on file Limitations: Assessment and Plan Assessment and plan (1) Palliative care encounter: Status: Acute Assessment and plan: Palliative Care Team will follow up with patient in a week if he is still in the hospital and in the future if he moves back to [facility]. Please call us sooner if you would like us to become involved in his care. (2) Advanced care planning/counseling discussion: Status: Acute Assessment and plan: Long discussion today about goals of care, goals, wishes and values. Patient has expressed that this may be it for him, I am out of Florian eggs . Discussion with sons about whether they thought comfort measures only might be appropriate. They are hoping he gets some recovery from latest stroke and would like to see how he does in rehab. Brief conversation at bedside with patient. He confirms that he would not want CPR or to be intubated. Further discussion with sons. they confirm that this is what he is wanted for several years. However sons feel it is still appropriate for him to be transferred to the hospital for evaluation and treatment, to receive IV fluids and antibiotics as needed. Sons agreed that if he did not have significant improvement, or if he expressed further desire to be comfort measures only, they would like to reevaluate and switch him to comfort measures only. COLST form was written up based on today's discussion. Recommend follow-up discussion with patient and family in about a week. If he is in our area, we would be happy to meet with him in a facility. Otherwise this can be arranged wherever he is. We are also happy to see him if he is transferred back to a SNF within [facility]. 16 to 30 minutes spent today on Advance Care Planning. Patient and family participated voluntarily. Advance care planning may include (not limited to) explanation and discussion of advance directives, choosing and appointing healthcare agents, alternatives to various ACP tools, discussion of (and if indicated, completion of) COLST form, discussion of patient's values and overall goals for treatment, palliative and disease directive care options, ways to avoid hospital readmission including hospice discussions, care preferences should the patient's several other adverse health events.See today's palliative care note for additional information. (3) Dementia with behavioral disturbance: Status: Chronic Assessment and plan: Prior to admission home medications included clonazepam 1 mg at bedtime, gabapentin 300 mg (twice daily) memantadine 5 mg daily, melatonin 6 mg nightly,quetiapine 25 mg (written as both 3 times daily and twice daily). He is currently receiving all of these medications. Additionally last night he got clonazepam 1 mg at bedtime and then a milligram of lorazepam 2 hours later. This may have contributed to his delirium last night. Recommend: -Cancel as needed lorazepam prescription. -Use behavioral supports to help with agitation. -Since his dementia appears to be vascular, unclear if memantadine is particularly helpful. -If difficult behaviors continue, we are are available to consult. Can also consider consult with neurology. (4) CVA (cerebral vascular accident): Status: Chronic (5) Discharge planning issues: Status: Acute Assessment and plan: Discussion over treatment options along with Nelda of case management and sons. Initial plan is for him to go to subacute rehab, most likely at [facility] in [place]. Subsequent to that, options include SNF closer to home or community assisted. Although family would love to be able to take him back home, they do not think given his current care requirements that they would be able to manage this. (6) UTI (urinary tract infection) due to urinary indwelling catheter: Status: Acute Assessment and plan: Patient with history of bladder dysfunction, previously managed as outpatient by Dr. Jean Baptiste. He was doing self cath twice a day (as per son's). Switch to indwelling Fitzpatrick after his December stroke. Sons report having bladder infections all the time . Looking in [facility] chart, currently diagnosed with UTI with 2 species growing out (Enterococcus, Pseudomonas). Previous positive culture April 2022. Sounds like he was diagnosed with 1 after another UTIs at [facility] manifested by increased confusion. We have no access to lab results to see how evaluated. Suspect he is colonized, unclear if he truly had UTIs while at [facility] Patient also has a history of both bladder cancer, prostate cancer and also a small suspicious renal mass that was being monitored by imaging. Patient had not wanted to have any more follow-up for the bladder and prostate cancer. Now the sons are concerned that maybe some of the symptoms are from possible cancer recurrence. Discussion today considering whether he would pursue further diagnosis (i.e. cystoscopy) and treatment (i.e. BCG bladder instillations). The sons after consideration say that he would not want to have this done. However they would appreciate if Dr. Jean Baptiste could consult regarding recurrent bladder infections, would he recommend prophylactic antibiotics? This would have to be done before he is transferred to subacute rehab facility in [place]. I will send message to Dr. Jean Baptiste to see if he is able to see patient in the hospital prior to transfer. Patient did have outpatient appointment scheduled for yesterday and was unable to make it. [facility] All Active Problems (Updated 04/02/23 @ 11:57 by Mary Alice Reyes MD) Discharge planning issues (Acute) Advanced care planning/counseling discussion (Acute) Palliative care encounter (Acute) UTI (urinary tract infection) due to urinary indwelling catheter (Acute) Swallowing difficulty (Acute) Acute UTI (Acute) Chronic indwelling Fitzpatrick catheter (Acute) CVA (cerebral vascular accident) (Chronic) Dementia with behavioral disturbance (Chronic) Altered mental status (Acute) Acute UTI (urinary tract infection) (Acute) Left carotid stenosis (Acute) Indwelling Fitzpatrick catheter present (Chronic) CVA (cerebral vascular accident) (Chronic) Bladder instability (Acute) Memory problem (Acute) Insomnia (Acute) Lower urinary tract symptoms (LUTS) (Acute) Malignant neoplasm of urinary bladder (Acute) Per Rad Onc note from 06/15/21 Arthritis of first metatarsophalangeal (MTP) joint of left foot (Acute) Renal cell cancer (Chronic ~05/2020) Stage 1 Gr 2 Left Bladder mass (Acute) [facility] Cystoscopy 06/01/20 Prostate cancer (Chronic) Prostate fiducial/Space Oar implant 05/17/21 Hematuria (Acute) Nodular prostate without lower urinary tract symptoms (Acute) Essential hypertension (Acute) Alcohol abuse, 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 of [place] coronary artery of [place] heart without angina pectoris (Chronic 08/16/97) NM 08/11/97 cath 80% LAD; CABG X 2 08/1997; shaylee 2000 Coronary atherosclerosis of [place] coronary vessel (Chronic 08/16/97) NM 08/11/97 cath 80% LAD; CABG X 2 08/1997; shaylee 2000 Cramp in limb (Chronic 08/19/12) in cold weather: L MEDIAL THIGH SEVERE; when tired, limps (favor L) Dysmetabolic syndrome X (Chronic 05/26/12) ED (erectile dysfunction) (Chronic 07/13/14) Idiopathic peripheral neuropathy (Chronic 03/12/17) Tobacco dependence syndrome (Chronic 05/26/12) PIPE DAILY Weakness of left leg (Chronic 12/17/16) perceives left leg weaker, ? related to harvesting of veins 1996 Medical History Alcohol abuse Coronary artery disease Hyperlipemia Surgical History Colonoscopy - IV Sedation (10/30/16) 08/21/16 H/O cystoscopy (~10/26/20) [facility] Urology-Dr Plata History of appendectomy History of tonsillectomy Hx of CABG (08/16/97) Hx of cholecystectomy (10/07/01) Inguinal hernia (09/06/03) repair, right S/P hernia repair (02/05/04) right femoral S/P rotator cuff repair SKIN BIOPSY (08/07/15) SEBORRHEIC KERATOSIS SCALP, Elisabet Basal cell CA nose 2000 Family History Mother , pneumonia at age 74. Diabetes Father , peritonitis at age 57. age 57 cause {in José Antonio sent report of dad's certificate: Primary cause: peritonitis; secondary cause: Lymphoma. Not colon cancer, although he did have chemo and radiation to abdomen.}, ALSO CELIAC DIS. 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 Opens eyes to voice. Smiles. Answers in single word or short sentences. Can move left arm and hand. Right arm is totally limp. Turns head to look at speaker. See HPI. Results Last Vital Signs Temp 36.3 C L 04/02/23 11:08 Pulse 83 04/02/23 11:08 Resp 18 04/02/23 11:08 BP 154/84 H 04/02/23 11:08 Pulse Ox 95 04/02/23 11:08 Labs 04/02/23 06:20 04/02/23 06:20 Labs: Laboratory Results - last 24 hr 04/02/23 04/02/23 06:20 06:20 WBC 8.59 RBC 3.06 L Hgb 9.7 L Hct 29.5 L MCV 96 H MCH 31.7 MCHC 32.9 RDW 13.4 Plt Count 138 MPV 9.1 Immature Gran % 0.8 Neutrophils % 79.8 Lymphocytes % 7.8 Monocytes % 8.3 Eosinophils % 3.0 Basophils % 0.3 Nucleated RBC % 0.0 Absolute Neutrophils 6.85 H Absolute Lymphocytes 0.67 L Absolute Monocytes 0.71 Absolute Eosinophils 0.26 Absolute Basophils 0.03 Sodium 135 L Potassium 4.7 Chloride 101 Carbon Dioxide 25.6 Anion Gap 8.4 BUN 24 H Creatinine 1.3 Est GFR (CKD-EPI 2020) 55.53 Glucose 95 Calcium 8.4 L Magnesium 1.9
--- NOTE | 2023-04-02 12:12 | PDOC.STREC ---
Date of service: 04/02/23 Time of Service: 12:12 Speech Therapy Recommendations Report ST Recommendations: CREASING AND CUTTING PRESS FEEDER Communication / Non-Treatment Note Consult order received; chart reviewed. CREASING AND CUTTING PRESS FEEDER spoke with patient's RN re: current patient status, reason for consult ie concerns for dysphagia, specifically trouble swallowing pills; family concerned he is also having trouble with food, although PAUNCH TRIMMER/nursing has not observed difficulties while on unit. [facility] staff reports family was in this AM to feed patient breakfast and he did not have any significant issues. RN reports the following re: patient's dentition: has several missing teeth (no dentures), and that he is unable to feed himself so support and assist is needed from staff at this time. HPI: Patient is an 82 year old male admitted to [facility] on 03/28/23 for AMS and UTI, with recent decline over past few months per his caregiver, IRIS Saini. D/C plan is for SNF followed by LTC given high level of need. Plan: CREASING AND CUTTING PRESS FEEDER support available remote only this date; in-person CREASING AND CUTTING PRESS FEEDER to return 04/03 for in-person assessment/screening as appropriate, provide updated recommendations. Current Recommendations: - Continue with current diet orders (Level 7 Regular Solids, Level 0 thin liquids) with direct supervision to identify specific support needs during mealtimes (ie, cues for reduced rate, trial of modified solid textures, such as Level 6 soft/bite-sized, to assess for improvements in intake/ease of mastication,etc). Please contact CREASING AND CUTTING PRESS FEEDER if overt s/sx aspiration are present (eg, cough, throat clear, wet/gurgly vocal quality). - Provide oral medications as tolerated with pureed texture; consult MD if patient continues inability to tolerate po meds. - If in-person CREASING AND CUTTING PRESS FEEDER assessment/screening still unavailable prior to patient D/C, recommend CREASING AND CUTTING PRESS FEEDER evaluation upon arrival at SNF to assess appropriate supports in SNF and LTC settings. - Recommend ongoing family/caregiver support and education, collaboration with Palliative Care. Sindy Chou MA [facility]-CREASING AND CUTTING PRESS FEEDER Speech-Language Pathologist [place]#[phone] Coding
--- NOTE | 2023-04-02 15:17 | PT.INNT ---
Date of service: 04/02/23 Time of Service: 15:08 PT Notes Visit Reasons: AMS, UTI, Right VCA w/ Possible Hemorrhage Patient supine in bed, states he is very tired, agreeable to attempt therapy but immediately upon attempting to move he changes his mind and states he is way too tired. Per DANY Mcpherson patient received Seroquel at 2 pm and is unlikely to be up for therapy at this time.
[2023-04-02] MEDS: Lidocaine 5% Patch 1 PATCH TP (16:48)
--- NOTE | 2023-04-02 17:36 | PGE_ITS ---
Date of Service Date of service: 04/02/23 Time of Service: 17:36 Assessment and Plan Assessment and plan (1) Altered mental status: Status: Acute Assessment and plan: lives with his daughter, she feels she can't take care of him anymore Baseline dementia which is advanced and status post left CVA with extension. Head CT neg - suspect AMS due to UTI Improving, at baseline now, awaiting placement (2) UTI (urinary tract infection) due to urinary indwelling catheter: Status: Acute Assessment and plan: With chronic indwelling Fitzpatrick catheter, changed in ED, Continue Cefepime 2 gm q8h for pseudomonas aeruginosa Added fosfomycin x 2 for enterococcus faecalis (3) CVA (cerebral vascular accident): Status: Chronic Assessment and plan: Left lacunar infarct subacute - weakness chronically. VTE prophylaxis is contraindicated. Hold ASA Qualifiers: CVA mechanism: occlusion Precerebral and cerebral artery: middle cerebral artery Laterality of affected vessel: left Qualified Code(s): I63.512 - Cerebral infarction due to unspecified occlusion or stenosis of left middle cerebral artery (4) Dementia with behavioral disturbance: Status: Chronic Assessment and plan: Recently initiated on therapy with progressive disease. Patient is a DNR/DNI. No behavioral disturbance noted (5) Swallowing difficulty: Status: Acute Assessment and plan: Trouble swallowing pills today, family concerned he is also having trouble with food, although nurse or I did not observe that. Speech consult placed for swallowing eval Discussed with Dr Coburn Subjective Subjective Patient reports: no new complaints, tolerating a regular diet, bowel movement and afebrile; denies diarrhea, nausea or vomiting Interval history since last seen: Slightly more confused today - Palliative care saw him, family meeting Exam Narrative Exam Narrative: General: Slow speech and monotonous tone, he is in no acute distress and is alert and oriented at to person and place. HEENT: Normocephalic, eyes with pupils equal and reactive light symmetrically, extraocular movement intact and sclera anicteric. Oropharynx with dry mucosa. Neck: Supple without JVD. Lungs: Fair aeration, no focalizing rales or rhonchi. No expiratory wheeze with increased expiratory phase. Heart: Regular rate and rhythm with no murmurs or gallops Abdomen: Soft nontender to palpation with no palpable hepatomegaly. Bowel sounds positive in all quadrants. Genitalia/rectal: Exam deferred. Patient does have indwelling Fitzpatrick catheter draining clear urine Extremities: Without clubbing, cyanosis or pitting edema but positive nonpitting edema aspect of the right leg with decreased movement. Fair capillary refill. Skin: Pale, warm and dry Neuro: Cranial nerves II through XII gross intact, right upper extremity is flaccid without movement and right lower extremity has 3 out of 5 strength being up to move against gravity and slight resistance. No tremor. Speech is slow. Psych: Flat affect with depressed mood. No abnormal thought processes. Remote memory intact with recent memory not intact. Objective Last Vital Signs Temp 36.9 C 04/02/23 14:58 Pulse 74 04/02/23 14:58 Resp 17 04/02/23 14:58 BP 150/88 H 04/02/23 14:58 Pulse Ox 94 04/02/23 14:58 Laboratory Results - last 24 hr 04/02/23 04/02/23 06:20 06:20 WBC 8.59 RBC 3.06 L Hgb 9.7 L Hct 29.5 L MCV 96 H MCH 31.7 MCHC 32.9 RDW 13.4 Plt Count 138 MPV 9.1 Immature Gran % 0.8 Neutrophils % 79.8 Lymphocytes % 7.8 Monocytes % 8.3 Eosinophils % 3.0 Basophils % 0.3 Nucleated RBC % 0.0 Absolute Neutrophils 6.85 H Absolute Lymphocytes 0.67 L Absolute Monocytes 0.71 Absolute Eosinophils 0.26 Absolute Basophils 0.03 Sodium 135 L Potassium 4.7 Chloride 101 Carbon Dioxide 25.6 Anion Gap 8.4 BUN 24 H Creatinine 1.3 Est GFR (CKD-EPI 2020) 55.53 Glucose 95 Calcium 8.4 L Magnesium 1.9 Time Spent with Patient Time Spent with Patient: 25-34 minutes Time was spent: preparing to see the patient(eg.review tests), ordering medications,tests, procedures, referring, communicating with other health chronic care nurse, indepentently interpreting results, counseling the patient and care coordination
[2023-04-02 18:24] LABS: Source Nasal/Nares
[2023-04-02 19:04] LABS: COVID-19 PCR Negative (Negative)
[2023-04-02] MEDS: Atorvastatin 40 MG TAB 80 MG PO (19:53)
[2023-04-02] MEDS: Melatonin 3 MG TAB 6 MG PO (21:01)
[2023-04-02] MEDS: clonazePAM 1 MG TAB PO (21:01)
[2023-04-03] MEDS: CEFEPIME 2 GM in Normal Saline 100 ML IVPB (04:11)
[2023-04-03 07:00] VITALS: PULSE 85
[2023-04-03 07:07] VITALS: BP 100/69; PULSE 85; RESP 17; TEMP 36.3; O2SAT 93
[2023-04-03 07:34] LABS: Abs Immature Grans 0.06 10^3/uL (0.0-0.06); Absolute Basophil Count 0.04 10^3/uL (0.0-0.2); Absolute Eosinophil Count 0.25 10^3/uL (0.0-0.7); Absolute Lymphocyte Count 0.83 10^3/uL (1.2-3.4); Absolute Monocyte Count 0.85 10^3/uL (0.1-0.8); Absolute Neutrophil Count 6.11 10^3/uL (1.2-6.7); Basophils % 0.5; Eosinophils % 3.1; HCT 32.7 % (40.0-50.0); HGB 10.7 g/dL (13.5-17.5); Immature Grans % 0.7; Lymphocytes % 10.2; MCH 31.8 pg (27.0-33.0); MCHC 32.7 % (32.0-36.0); MCV 97 fL (80-95); MPV 9.1 fL (8.0-11.0); Monocytes % 10.4; Neutrophils % 75.1; Platelet Count 171 10^3/uL (130-400); RBC 3.37 10^6/uL (4.36-5.78); RDW 13.6 % (11.8-14.1); RDW-SD 48.6 fL; WBC 8.14 10^3/uL (4.4-10.8)
[2023-04-03] MEDS: QUEtiapine 25 MG TAB PO (07:45)
[2023-04-03] MEDS: Memantine 5 MG TAB PO (07:45)
[2023-04-03] MEDS: Cholecalciferol (Vitamin D3) 1,000 UNIT TAB 1000 UNITS PO (07:45)
[2023-04-03] MEDS: Pantoprazole 40 MG TABCR PO (07:45)
[2023-04-03] MEDS: Gabapentin 300 MG CAP PO (07:45)
[2023-04-03] MEDS: Potassium Chloride 20 MEQ TABCR PO (07:45)
[2023-04-03 07:51] LABS: Anion Gap 8.4 mmol/L (3-11); BUN 19 mg/dL (7-18); CO2 26.6 mmol/L (21.0-32.0); CREATININE 1.1 mg/dL (0.70-1.30); Calcium 8.6 mg/dL (8.5-10.1); Chloride 104 mmol/L (98-107); Estimated GFR 67.86 (mL/min/1.73m2); Glucose 94 mg/dL (74-106); Potassium 4.3 mmol/L (3.5-5.1); Sodium 139 mmol/L (136-145)
--- NOTE | 2023-04-03 08:47 | OT.INNT ---
Occupational Therapy Notes 04/03/23 OT consult received and pts chart was reviewed. OT went in to see pt for consult and pts family had asked to not have consult performed. They noted that pt was resting and they would like him to rest prior to discharge. OT will hold on consult per family's request. Madison Stephens, OTR/L
--- NOTE | 2023-04-03 10:08 | DSE_ITS ---
Date of service: 04/03/23 Time of Service: 10:08 DS: Diagnosis Discharge Diagnosis (1) Altered mental status: Status: Acute (2) UTI (urinary tract infection) due to urinary indwelling catheter: Status: Acute (3) CVA (cerebral vascular accident): Status: Chronic (4) Dementia with behavioral disturbance: Status: Chronic (5) Swallowing difficulty: Status: Acute (6) Palliative care encounter: Status: Acute Discharge Plan Disposition Patient Disposition: Longterm Facility(SNF) Condition: Fair Discharge Details Reason For Visit: AMS, UTI, Right VCA w/ Possible Hemorrhage Admit Date/Time: 03/28/23 20:02 Admit Provider: Thomas Ferrara Attending Provider: Thomas Ferrara Primary Care Provider: Tomy Jasso [place] Hospital Course Hospital Course: This is an 82-year-old male patient cared for at home by his daughter who noticed an acute onset of change in behavior the afternoon of admission with increased behavioral abnormalities and agitation.? He had no fever or rigors; he has a chronic indwelling Fitzpatrick catheter with urine appearing cloudy the morning of admission.? He was brought to the ED with evaluation revealing probable UTI. He had a recent left CVA with left carotid stenosis which involved the frontal lobe on December 23, 2022 and then a second stroke on January 24, 2023 which involved 3 parietal lobe with flaccid right upper extremity with some heaviness of the right lower extremity and worsening dementia with advancing medical therapy.? He did go to rehabilitation after his strokes but is at home with his daughter now as noted.? The medical cost consultant daughter offers no further history stating that he was at baseline the morning of admission. He was treated with fosfomycin and does need another dose 04/05. His vital signs are stable. He is pleasant and conversant. He does voice feeling depressed and thinking he is nearing the end of his life and is starting to accept that. He is a DNR/DNI. discussed with Dr Sammy Rodriguez Meds and New Rx's Prescriptions: New clonazepam 1 mg Tablet 1 mg PO HS Qty: 30 0RF lidocaine 5 % Adhesive Patch,Medicated 1 patch topical Q24H Qty: 0 0RF fosfomycin tromethamine 3 gram packet 3 g PO ONCE Qty: 1 0RF Continued albuterol sulfate 90 mcg/actuation HFA aerosol inhaler 2 puff inhalation BID atorvastatin 80 mg tablet 80 mg PO DAILY pantoprazole [Protonix] 40 mg tablet,delayed release (DR/EC) 40 mg PO DAILY melatonin 3 mg tablet 6 mg PO HS sennosides-docusate sodium [Senna-Time S] 8.6-50 mg tablet 1 tab-cap PO QHS quetiapine 25 mg tablet 25 mg PO TID Qty: 90 3RF azo cranberry gummies 2 tab PO DAILY clonazepam 1 mg tablet 1 mg PO HS Qty: 90 1RF Rx Instructions: for night muscle spasms potassium chloride 20 mEq tablet extended release 20 meq PO DAILY Qty: 30 0RF memantine 5 mg tablet 5 mg PO DAILY Qty: 30 0RF acetaminophen [Tylenol Extra Strength] 500 mg tablet 500 mg PO DAILY gabapentin 300 mg capsule 300 mg PO as directed Qty: 270 3RF Rx Instructions: take BID with extra 1 tab prn pain Discontinued aspirin [Aspir-81] 81 mg tablet,delayed release (DR/EC) 325 mg PO DAILY Rx Instructions: secondary preventiion coronary disease lorazepam [Ativan] 1 mg tablet 1 mg PO Q6H PRN (Reason: agitation) Qty: 60 0RF No Action cholecalciferol (vitamin D3) 1,000 UNIT tablet 1,000 unit PO DAILY Qty: 100 Rx Instructions: supplement vitamin D Discharge Instructions Instructions: Urinary Tract Infection in Men (GEN), Dementia (GEN), Fitzpatrick Catheter Placement and Care (GEN) Referrals: Louis Jean Baptiste MD [ [facility] STAFF PHYSICIAN] - 04/29/23 2:00 pm Tomy Jasos DO [Primary Care Provider] - Activity:: Activity as Tolerated Equipment/Supplies:: Walker Diet:: Low Sodium Discharge Orders Discharge Orders: Discharge Order (Routine); Ordered 04/03/23 Ordered By: Shawna Taylor DS: Summary Time Spent with Patient providing and/or coordinating discharge services: Greater than 30 minutes Status at Discharge Functional status at discharge: uses cane/walker Overall status at discharge: patient is not back to baseline Mental Status: other (confused) Speech and Movement: speech and movement normal Mood: congruent mood and other (confused) Affect: normal affect Exam Const General: cooperative and no acute distress HENMT Head: normocephalic and atraumatic Mouth: moist mucous membranes Eyes Eyelids: eyelid abnormality (ptosis left) Conjunctivae: conjunctivae normal Sclera: sclerae normal Neck Neck: supple Resp Auscultation: clear to auscultation bilaterally Cardio Rhythm: regular rhythm GI Palpation: soft, not firm, no guarding, no masses, not rigid and nontender Skin General skin exam: no rashes or lesions noted Neuro General: patient alert, patient awake and oriented Patient Orientation: Person and Confused Extrem General: no edema Other: Psych Appearance: grossly normal Mental Status: other (confused) Speech and Movement: speech and movement normal Mood: congruent mood and other (confused) Affect: normal affect DS: Data Vitals/I&O Vitals and I&O: Vital Signs Temperature 36.3 C L 04/03/23 07:07 Temperature Source Tympanic 04/03/23 07:07 Pulse 85 04/03/23 07:07 Pulse Rhythm Regular 04/03/23 08:03 Pulse 70 03/28/23 21:01 Respiratory Rate 17 04/03/23 07:07 Respiratory Effort Normal, Non-Labored 04/03/23 08:03 Respiratory Depth Normal 04/03/23 08:03 Respiratory Pattern Normal 04/03/23 08:03 Blood Pressure 100/69 04/03/23 07:07 Blood Pressure Mean 81 03/28/23 21:00 Blood Pressure Position Sitting 03/28/23 16:31 Pulse Oximetry 93 04/03/23 07:07 Oxygen Delivery Method Room Air 04/03/23 07:07 Oxygen Flow Rate 0 04/03/23 07:07 Pain Level 0 04/03/23 07:07 Comment RN informed of SAO2 03/30/23 20:12 Intake & Output 04/02/23 04/02/23 04/03/23 11:59 23:59 11:59 Intake Total 410 / 510 100 / 510 100 / 100 Output Total 500 / 1550 1050 / 1550 1100 / 1100 Balance -90 / -1040 -950 / -1040 -1000 / -1000 Weight 62.7 kg Intake: IV 210 / 310 100 / 310 100 / 100 Oral 200 / 200 Output: Urine 500 / 1550 1050 / 1550 1100 / 1100 Other: Urine Color Yellow Yellow Pale Yellow Urine Appearance Clear Clear Clear Sediment Stool Size Large Stool Characteristics Soft Formed Data Completed and Pending Labs on day of discharge: Labs from last 24 hours 04/03/23 04/03/23 04/02/23 07:10 07:10 18:15 WBC 8.14 RBC 3.37 L Hgb 10.7 L Hct 32.7 L MCV 97 H MCH 31.8 MCHC 32.7 RDW 13.6 Plt Count 171 MPV 9.1 Immature Gran % 0.7 Neutrophils % 75.1 Lymphocytes % 10.2 Monocytes % 10.4 Eosinophils % 3.1 Basophils % 0.5 Nucleated RBC % 0.0 Absolute Neutrophils 6.11 Absolute Lymphocytes 0.83 L Absolute Monocytes 0.85 H Absolute Eosinophils 0.25 Absolute Basophils 0.04 Sodium 139 Potassium 4.3 Chloride 104 Carbon Dioxide 26.6 Anion Gap 8.4 BUN 19 H Creatinine 1.1 Est GFR (CKD-EPI 2020) 67.86 Glucose 94 Calcium 8.6 Magnesium 2.0 COVID-19 Source Nasal/Nares SARS-CoV-2 (PCR) Negative PFSH All Active Problems (Updated 04/02/23 @ 11:57 by Mary Alice Reyes MD) Discharge planning issues (Acute) Advanced care planning/counseling discussion (Acute) Palliative care encounter (Acute) UTI (urinary tract infection) due to urinary indwelling catheter (Acute) Swallowing difficulty (Acute) Acute UTI (Acute) Chronic indwelling Fitzpatrick catheter (Acute) CVA (cerebral vascular accident) (Chronic) Dementia with behavioral disturbance (Chronic) Altered mental status (Acute) Acute UTI (urinary tract infection) (Acute) Left carotid stenosis (Acute) Indwelling Fitzpatrick catheter present (Chronic) CVA (cerebral vascular accident) (Chronic) Bladder instability (Acute) Memory problem (Acute) Insomnia (Acute) Lower urinary tract symptoms (LUTS) (Acute) Malignant neoplasm of urinary bladder (Acute) Per Rad Onc note from 06/15/21 Arthritis of first metatarsophalangeal (MTP) joint of left foot (Acute) Renal cell cancer (Chronic ~05/2020) Stage 1 Gr 2 Left Bladder mass (Acute) [facility] [place] Cystoscopy 06/01/20 Prostate cancer (Chronic) Prostate fiducial/Space Oar implant 05/17/21 Hematuria (Acute) Nodular prostate without lower urinary tract symptoms (Acute) Essential hypertension (Acute) Alcohol abuse, 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 of [place] coronary artery of [place] heart without angina pectoris (Chronic 08/16/97) [place] 08/11/97 cath 80% LAD; CABG X 2 08/1997; shaylee 2000 Coronary atherosclerosis of [place] coronary vessel (Chronic 08/16/97) [place] 08/11/97 cath 80% LAD; CABG X 2 08/1997; shaylee 2000 Cramp in limb (Chronic 08/19/12) in cold weather: L MEDIAL THIGH SEVERE; when tired, limps (favor L) Dysmetabolic syndrome X (Chronic 05/26/12) ED (erectile dysfunction) (Chronic 07/13/14) Idiopathic peripheral neuropathy (Chronic 03/12/17) Tobacco dependence syndrome (Chronic 05/26/12) PIPE DAILY Weakness of left leg (Chronic 12/17/16) perceives left leg weaker, ? related to harvesting of veins 1996 Medical History Alcohol abuse Coronary artery disease Hyperlipemia Surgical History Colonoscopy - IV Sedation (10/30/16) 08/21/16 H/O cystoscopy (~10/26/20) [facility] [place] Urology-Dr Plata History of appendectomy History of tonsillectomy Hx of CABG (08/16/97) Hx of cholecystectomy (10/07/01) Inguinal hernia (09/06/03) repair, right S/P hernia repair (02/05/04) right femoral S/P rotator cuff repair SKIN BIOPSY (08/07/15) SEBORRHEIC KERATOSIS SCALP, [place] Basal cell CA nose 2000 Family History Mother , pneumonia at age 74. Diabetes Father , peritonitis at age 57. age 57 cause {in [place] sent report of dad's certificate: Primary cause: peritonitis; secondary cause: Lymphoma. Not colon cancer, although he did have chemo and radiation to abdomen.}, ALSO CELIAC DIS. 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 Current gender identity: male What is your relationship status?: Panel score (0-1 are the most socially isolated patients): 0 What type of physical activity do you participate in: none Seatbelt use: always Drive intox or ride w/intox port cdl a driver: No Working smoke detector in home: Yes Fire extinguisher in home: Yes Carbon monox detector in home: Yes Do you feel safe at home: Yes Do you feel safe in your relationship?: Yes Time Spent with Patient Time Spent with Patient: 45-69 minutes Time was spent: preparing to see the patient(eg.review tests), obtaining and/or reviewing separately otained hiistory and care coordination
--- NOTE | 2023-04-03 10:57 | PDOC.CMDIS ---
Date of service: 04/03/23 Time of Service: 10:57 LACE Index Scoring Tool Questions: Length of Stay (in days): 4 - 6 Was the patient admitted via the E.D.?: Yes Comorbidities: Cerebrovascular Disease, Any Tumor, Dementia and Metastatic Solid Tumor (HX: Renal Cell 2020, Prostate Cancer) E.D. Visits: 1 Answers: Total Score: 13 Risk of Readmission: High Risk Care Management Discharge Plan Reason for Hospitalization: AMS and UTI Discharge Plan: Salas is discharge to [facility] for STR. He is transported via private vehicle with his sons. He will follow up with community providers and his discharge plan of care as instructed. Following STR he is planning on discharging to a LTC facility. Family is looking into Residential Care homes and plans to self pay. CM placed referral to [facility], and recommended family outreach to [facility] for a list of local family care homes and support with coordination. Patient/Family Education Needs: Review discharge instructions, limitations, medications and plan to follow up with community providers. Discuss ask me three and goals of self care. Services Needed at Discharge: Long-Term Facility ([facility])
--- NOTE | 2023-04-04 17:03 | PT.INDS ---
Date of service: 04/04/23 PT Notes Visit Reasons: AMS, UTI, Right VCA w/ Possible Hemorrhage Physical Therapy Inpatient Discharge Summary Date: 04/02/2023 Dates of service: 03/29/2023 through 04/02/2023 This is a clinical summary of care provided for the duration of dates listed above. No charge was made in the completion of this documentation. Referring Doctor: Thomas Ferrara MD PT Orders: PT CONSULT: Limited ability Precautions: High fall risk. Standard.? Chronic right-sided hemiparesis. Patient Profile/Admitting Diagnosis:? Salas is an 82-year-old male who presented to the ED on 03/28/2023 due to worsening confusion, agitation, and generalized weakness.? Patient is admitted due to for management of altered mental status, acute urinary tract infection, late effects of left lacunar infarct, and dementia with behavioral disturbances.? Per new imaging, there may be possible re-bleed and worsened right-sided weakness. PMHX: All Active Problems?(Updated 03/28/23 @ 21:16 by Thomas Ferrara) Acute UTI (Acute) Chronic indwelling Fitzpatrick catheter (Acute) CVA (cerebral vascular accident) (Chronic) Dementia with behavioral disturbance (Chronic) Altered mental status (Acute) Acute UTI (urinary tract infection) (Acute) Left carotid stenosis (Acute) Indwelling Fitzpatrick catheter present (Chronic) CVA (cerebral vascular accident) (Chronic) Bladder instability (Acute) Memory problem (Acute) Insomnia (Acute) Lower urinary tract symptoms (LUTS) (Acute) Malignant neoplasm of urinary bladder (Acute) Per Rad Onc note from 06/15/21 Arthritis of first metatarsophalangeal (MTP) joint of left foot (Acute) Renal cell cancer (Chronic ~05/2020) Stage 1 Gr 2? Left Bladder mass (Acute) [facility] [place]ystoscopy 06/01/20 Prostate cancer (Chronic) Prostate fiducial/Space Oar implant 05/17/21Hematuria (Acute) Nodular prostate without lower urinary tract symptoms (Acute) Essential hypertension (Acute) Alcohol abuse, 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 of [place] coronary artery of [place] heart without angina pectoris (Chronic 08/16/97) [place] 08/11/97 cath 80% LAD; CABG X 2 08/1997; shaylee 2000 Coronary atherosclerosis of [place] coronary vessel (Chronic 08/16/97) [place] 08/11/97 cath 80% LAD; CABG X 2 08/1997; shaylee 2000 Cramp in limb (Chronic 08/19/12) in cold weather: L MEDIAL THIGH? SEVERE; when tired, limps (favor L) Dysmetabolic syndrome X (Chronic 05/26/12) ED (erectile dysfunction) (Chronic 07/13/14) Idiopathic peripheral neuropathy (Chronic 03/12/17) Tobacco dependence syndrome (Chronic 05/26/12) PIPE DAILY Weakness of left leg (Chronic 12/17/16) perceives left leg weaker, ? related to harvesting of veins 1996 Medical History? Alcohol abuse Coronary artery disease Hyperlipemia Surgical History? Colonoscopy - IV Sedation (10/30/16) 08/21/16 H/O cystoscopy (~10/26/20) [facility] [place]-Dr Plata History of appendectomy History of tonsillectomy Hx of CABG (08/16/97) Hx of cholecystectomy (10/07/01) Inguinal hernia (09/06/03) repair,? right S/P hernia repair (02/05/04) right femoral S/P rotator cuff repair SKIN BIOPSY (08/07/15) SEBORRHEIC KERATOSIS SCALP, [place] Basal cell CA nose 2000 Social History/Home Situation: Unreliable historian.? Please review CM notes. Equipment Owned/DME: Unreliable historian.? Please review CM notes. Subjective: NT. See most recent TOEING STOCKINGS notes. Objective: General Observation: NT. See most recent TOEING STOCKINGS notes. Mental Status: NT. See most recent TOEING STOCKINGS notes. Pain: NT. See most recent TOEING STOCKINGS notes. Vital Signs: NT. See most recent TOEING STOCKINGS notes. ROM: Right Upper Extremity: ? R UE flaccid,? no active movement demonstrated.? Slight active flexion at MCP and IP joints. Left Upper Extremity:? Shoulder Flexion WFL. Shoulder abduction WFL. Elbow flexion WFL. Wrist flexion WFL. Functional opening and closing of hand WFL. Right Lower Extremity: Hip flexion WFL. Hip abduction WFL. Knee flexion 45 to 90 degrees. Knee extension -45 degrees.? Ankle dorsiflexion -10 degrees. Ankle plantarflexion 10 degrees to 30 degrees. Left Lower Extremity: Hip flexion WFL. Hip abduction WFL. Knee flexion 45 to 90 degrees. Knee extension -45 degrees.? Ankle dorsiflexion WFL. Ankle plantarflexion WFL. Strength: Right Upper Extremity: Shoulder flexors 0/5. Shoulder abductors 0/5. Elbow flexors 0/5. Elbow extensors 0/5.? Personal Service Representative very weak and noon-functional. Left Upper Extremity: Shoulder flexors 4-/5. Shoulder abductors 4-/5. Elbow flexors 4-/5. Elbow extensors 4-/5. Personal Service Representative strong. Right Lower Extremity: Hip flexors 4-/5. Hip abductors 4-/5. Knee flexors 4-/5. Knee extensors 4-/5. Ankle dorsiflexors 4-/5. Ankle plantarflexors 4/5. Left Lower Extremity: Hip flexors 4/5. Hip abductors 4/5. Knee flexors 4/5. Knee extensors 4/5. Ankle dorsiflexors 4/5. Ankle plantarflexors 4/5. Bed Mobility/Transfers: Supine to sit minimal assist with HOB 45 degrees Sit to stand minimal assist Stand to sit minimal assist Bed to reclining chair with minimal assist Gait: Instructed patient with level surface ambulation of 50 feet + 50 feet requiring minimal assist of 2.? Unable to fully extend either knee at midstance.? No hip extension on either side.? Trunk flexion excessive.? Maximal verbal cues needed for safe gait pattern,? posture, and hemiwalker management. Balance: Static Sitting: Normal Dynamic Sitting: Normal Static Standing: Fair Dynamic Standing: Fair ASSESSMENT: Confused due to acute UTI and effects of CVA process (both acute and chronic) as well as to pre-existing dementia,? required frequent redirection.? Able to follow simple, single step commands.? R UE severely hypotonic with no active movement in R shoulder,? elbow, and wrist. MCP and IP flexion miniscule. gait pattern unsafe at this time,? requires assist of 2 for all mobility ADL performance. Patient presents with clinical signs and symptoms consistent with current/admitting diagnoses that have resulted to mobility limitations, gait instability, generalized weakness, and overall ADL decline as demonstrated by the following impairment level findings: 1.? R-side hemiparesis 2.? Impaired sitting/standing balance 3.? Impaired activity tolerance 4.? Pre-existing generalized weakness Impairments are contributing to the following functional limitations: 1.? Decline in bed mobility skills 2.? Decline in transfer skills 3.? Difficulty with ambulation without assistive device and physical assistance 4.? Increased completion time for mobility ADL performance 5.? Increased risk for falls 6.? Difficulty with managing steps alone safely Goals: Goals X1 week 1. Supine-Sit independent NOT MET 2. Sit-Supine independent NOT MET 3. Sit-Stand stand by assist with hemiwalker vs FWW NOT MET 4. Stand-Sit stand by assist with hemiwalker vs FWW NOT MET 5. Bed-Chair stand by assist with hemiwalker vs FWW NOT MET 6. Chair-Bed stand by assist with hemiwalker vs FWW NOT MET 7. Contact guard assist with gait on level surface with use of hemiwalker for at least 100 feet without report of pain nor dyspnea NOT MET 8. Fair static and dynamic standing balance/tolerance NOT MET DISCHARGE RECOMMENDATIONS: [] ? Home with no services [] [] ? Home with services [specify] [] ? Home with outpatient PT [] [] ? SNF for continued rehabilitation [] [] ? Group Home Care [] [] ? SNF versus LTC based on ability to participate and progress [] [X]? SNF vs LTC based on availability of caregivers at home and on progress towards goals TREATMENT CODE/TIME: SHERRI Thank you for the opportunity to participate in the care of this patient. Jami Moreno PT, DPT, CLT [facility] [place], [place]
== END 2023-04-03 11:25 | disposition skilled nursing facility (03) | DRG 689 ==
LOC: ER 21:12 → MS 21:33
PROVIDERS: Internal Medicine; Nurse Practitioner Family; Admitting Provider Family Medicine; Emergency Provider Student in an Organized Health Care Education/Training Program; PCP Family Medicine; Visit Provider Family Medicine
DX: N39.0 Urinary tract infection, site not specified (principal); I63.512 Cerebral infarction due to unspecified occlusion or stenosis of left middle cerebral artery; F03.918 Unspecified dementia, unspecified severity, with other behavioral disturbance; I69.351 Hemiplegia and hemiparesis following cerebral infarction affecting right dominant side; T83.511A Infection and inflammatory reaction due to indwelling urethral catheter, initial encounter; R13.10 Dysphagia, unspecified; Z85.46 Personal history of malignant neoplasm of prostate; Z85.51 Personal history of malignant neoplasm of bladder; Z85.528 Personal history of other malignant neoplasm of kidney; I25.10 Atherosclerotic heart disease of native coronary artery without angina pectoris; I10 Essential (primary) hypertension; G25.81 Restless legs syndrome; E78.5 Hyperlipidemia, unspecified; G25.0 Essential tremor; I65.22 Occlusion and stenosis of left carotid artery; G47.00 Insomnia, unspecified; I25.2 Old myocardial infarction; Z95.1 Presence of aortocoronary bypass graft; E88.81 Metabolic syndrome and other insulin resistance; G60.8 Other hereditary and idiopathic neuropathies; F17.290 Nicotine dependence, other tobacco product, uncomplicated; F10.11 Alcohol abuse, in remission; Z66 Do not resuscitate; H02.402 Unspecified ptosis of left eyelid
CPT/HCPCS: 36415; 73521; 80048; 80053; 82962; 85027; 87077; 87635; 93005; 96365; 97110; 97116; 97163; 97530; 99285; 70450; 72125; 81003; 81015; 83735; 84443; 84484; 85025; 87086; 87186; 93010; 99223; 99232; 99239; J0696; J1885; J2060; J3490

== ENCOUNTER → 2023-04-29 13:48 | Outpatient (BNVA) | payer MEDICARE, OTHER, SELFPAY | PROVIDERS: PCP Family Medicine; Referring Provider Family Medicine; Visit Provider Nurse Practitioner Gerontology | DX: T83.511D Infection and inflammatory reaction due to indwelling urethral catheter, subsequent encounter (principal); Z87.440 Personal history of urinary (tract) infections; C67.9 Malignant neoplasm of bladder, unspecified; C64.9 Malignant neoplasm of unspecified kidney, except renal pelvis; C61 Malignant neoplasm of prostate | CPT/HCPCS: 51702; 99214 ==